=== PATIENT | female | born 1975 | race Hispanic/Latino ===

== ENCOUNTER 2018-06-07 23:00 | Emergency (ER) | payer SELFPAY ==
[~2018-06-07 23:00] MED LIST: ACET1TAB25 PO; DOCU100C33 PO; LEVO500T2 PO; METO5 PO; METR500T PO; PROM25TA7 PO
[2018-06-07] MEDS ORDERED: ONDANSETRON HCL 4 MG/2 ML VIAL ONE (23:38)
[2018-06-07] MEDS ORDERED: MORPHINE SULFATE 4 MG/1ML SYG ONE (23:39)
[2018-06-07 23:50] LABS: BASOPHILS % (AUTO) 0.4 % (0.0-5.0); EOSINOPHILS % (AUTO) 0.5 % (0.0-8.0); HEMATOCRIT 33.6 % (36-48); LYMPHOCYTES % (AUTO) 18.6 % (21.0-51.0); MEAN CORPUSCULAR HGB CONC 32.9 g/dL (32.0-36.0); MEAN CORPUSCULAR VOLUME 82.1 fL (79-99); MONOCYTES % (AUTO) 7.7 % (3.0-13.0); NEUTROPHILS % (AUTO) 72.8 % (40.0-77.0); NUCLEATED RED BLOOD CELLS 0.1 % (0.0-0.19); PLATELET COUNT (AUTO) 572 K/uL (130-400); RED CELL DISTRIBUTION WIDTH 16.3 % (11.0-15.5); WHITE BLOOD COUNT (AUTO) 11.4 K/uL (4.8-10.8)
[2018-06-08 00:05] LABS: ALBUMIN 2.6 g/dL (3.5-5.0); BILIRUBIN,TOTAL 0.3 mg/dL (0.2-1.0); CREATININE 0.6 mg/dL (0.5-1.5); TOTAL PROTEIN, SERUM 6.8 g/dL (6.0-8.3)
[2018-06-08 00:12] LABS: POTASSIUM 2.8 mmol/L (3.5-5.1)
[2018-06-08] MEDS ORDERED: POTASSIUM BICARB/CIT AC 25 MEQ TABLET.EFF ONE ×2 (01:04→02:24)
[2018-06-08] MEDS ORDERED: MORPHINE SULFATE 4 MG/1ML SYG ONE (02:24)
== END 2018-06-08 02:57 | disposition home or self-care (01) ==
LOC: EDH 23:00
DX: R10.84 Generalized abdominal pain (principal); E11.9 Type 2 diabetes mellitus without complications; E78.5 Hyperlipidemia, unspecified
CPT/HCPCS: 36415; 76705; 80053; 82550; 83605; 83690; 84484; 85025; 93005; 96374; 96375; 96376; 99285; J2270 ×2; J2405

== ENCOUNTER 2018-06-23 16:12 | Inpatient (IN) | payer SELFPAY ==
[~2018-06-23] VITALS: Ht 162.6 cm; Wt 68.9 kg
[2018-06-23 16:57] LABS: BASOPHILS % (AUTO) 0.3 % (0.0-5.0); EOSINOPHILS % (AUTO) 0.4 % (0.0-8.0); MEAN CORPUSCULAR HEMOGLOBIN 26.7 pg (27.0-33.0); MEAN CORPUSCULAR HGB CONC 33.5 g/dL (32.0-36.0); MEAN CORPUSCULAR VOLUME 79.7 fL (79-99); MONOCYTES % (AUTO) 4.3 % (3.0-13.0); PLATELET COUNT (AUTO) 640 K/uL (130-400); RED BLOOD CELL COUNT(AUTO) 4.77 MIL/uL (4.00-5.50); RED CELL DISTRIBUTION WIDTH 17.5 % (11.0-15.5); WHITE BLOOD COUNT (AUTO) 10.3 K/uL (4.8-10.8)
[2018-06-23 16:59] LABS: APPEARANCE,URINE SL CLOUDY (CLEAR); BILIRUBIN,URINE SMALL (NEGATIVE); COLOR,URINE YELLOW (YELLOW); GLUCOSE, URINE (UA) NEGATIVE (NEGATIVE); KETONES,URINE 15 mg/dL (NEGATIVE); LEUKOCYTE ESTERASE ,URINE SMALL (NEGATIVE); NITRATE,URINE NEGATIVE (NEGATIVE); OCCULT BLOOD,URINE SMALL (NEGATIVE); PROTEIN,URINE 30 (NEGATIVE); UROBILINOGEN,URINE 0.2 mg/dL (0.2-1.0)
[2018-06-23 17:14] LABS: BACTERIA,URINE Few /HPF (None Seen)
[2018-06-23 17:15] LABS: MUCUS,URINE Few LPF (None Seen); SQUAMOUS EPITHELIAL CELL,UR Few /HPF (0-2)
[2018-06-23] MEDS ORDERED: MORPHINE SULFATE 4 MG/1ML SYG ONE (17:57)
[2018-06-23] MEDS ORDERED: SODIUM CHLORIDE 0.9% 1000ML 2,000 ML IV ONE (17:57)
[2018-06-23] MEDS ORDERED: ONDANSETRON HCL 4 MG/2 ML VIAL ONE (17:57)
[2018-06-23 17:59] LABS: BILIRUBIN,TOTAL 0.3 mg/dL (0.2-1.0); CREATININE 0.5 mg/dL (0.5-1.5); TOTAL PROTEIN, SERUM 7.3 g/dL (6.0-8.3)
[2018-06-23 18:01] LABS: POTASSIUM 2.4 mmol/L (3.5-5.1)
[2018-06-23] MEDS ORDERED: POTASSIUM CHLORIDE 20MEQ/100ML 100 ML IV ONE ×2 (19:09→20:20)
[2018-06-23] MEDS ORDERED: LIDOCAINE HCL-MPF 1% 2ML VIAL ONE (19:09)
[2018-06-23] MEDS ORDERED: METHYLPREDNISOLONE SOD SUCC 125MG/2ML VIAL ONE (19:21)
[2018-06-23] MEDS ORDERED: ZOSYN 3.375GM+NS 50ML 50 ML IV ONE (19:21)
[2018-06-23] MEDS ORDERED: SODIUM CHLORIDE 0.9% 1000ML 1,000 ML IV ONE (20:20)
[2018-06-23] MEDS ORDERED: DIPHENOXYLATE HCL/ATROPINE 2.5/0.025 MG TAB PO PRN (21:30)
[2018-06-23] MEDS ORDERED: POTASSIUM CHLORIDE 20MEQ/100ML 100 ML IV PRN (21:45)
[2018-06-23] MEDS ORDERED: ONDANSETRON HCL 4 MG/2 ML VIAL IVP PRN (21:45)
[2018-06-23] MEDS ORDERED: POTASSIUM CHLORIDE 20 MEQ ERTAB PO PRN (21:45)
[2018-06-23] MEDS ORDERED: POTASSIUM CHLORIDE 10% ELIXIR 20 MEQ/15 ML UDCUP PO PRN (21:45)
[2018-06-23] MEDS ORDERED: LIDOCAINE HCL-MPF 1% 2ML VIAL IJ PRN (21:45)
[2018-06-23] MEDS ORDERED: GLUCAGON 1MG KIT 1 MG ML IM PRN (23:45)
[2018-06-23] MEDS ORDERED: DEXTROSE 50%-WATER 50 ML DISP.SYRIN IV PRN (23:45)
[2018-06-23 23:51] VITALS: BP 101/64
[2018-06-24] VITALS (7 sets, daily range): BP systolic 88–116; BP diastolic 55–69
[2018-06-24] MEDS ORDERED: DICYCLOMINE HCL 10 MG/ML 2ML AMP IM ONE ×2 (00:15)
[2018-06-24] MEDS: LACTATED RINGERS 1000ML 1,000 ML IV SCH ×3 (00:19→14:58)
[2018-06-24 04:37] LABS: BASOPHILS % (AUTO) 0.1 % (0.0-5.0); HEMATOCRIT 31.1 % (36-48); LYMPHOCYTES % (AUTO) 9.1 % (21.0-51.0); MEAN CORPUSCULAR HEMOGLOBIN 25.7 pg (27.0-33.0); MEAN CORPUSCULAR HGB CONC 31.8 g/dL (32.0-36.0); MEAN CORPUSCULAR VOLUME 80.7 fL (79-99); MONOCYTES % (AUTO) 1.6 % (3.0-13.0); NEUTROPHILS % (AUTO) 89.2 % (40.0-77.0); PLATELET COUNT (AUTO) 431 K/uL (130-400); RED BLOOD CELL COUNT(AUTO) 3.86 MIL/uL (4.00-5.50); RED CELL DISTRIBUTION WIDTH 16.8 % (11.0-15.5); WHITE BLOOD COUNT (AUTO) 4.4 K/uL (4.8-10.8)
[2018-06-24 05:10] LABS: ALBUMIN 1.7 g/dL (3.5-5.0); BILIRUBIN,TOTAL 0.4 mg/dL (0.2-1.0); CREATININE 0.5 mg/dL (0.5-1.5); POTASSIUM 3.3 mmol/L (3.5-5.1); TOTAL PROTEIN, SERUM 6.6 g/dL (6.0-8.3)
[2018-06-24] MEDS: INSULIN HUMULIN R 100 UNIT/ML 3ML SQ SCH ×4 (06:20→20:40)
[2018-06-24] MEDS: MORPHINE SULFATE 2 MG/ML 1ML SYG IVP PRN ×2 (08:41→20:05)
[2018-06-24] MEDS: POTASSIUM CHLORIDE 20 MEQ ERTAB PO SCH ×2 (11:25→20:22)
[2018-06-24] MEDS: FAMOTIDINE 20MG TAB 20 MG TAB PO SCH ×2 (11:26→20:05)
[2018-06-24] MEDS: PREDNISONE 20 MG TABLET PO SCH (11:26)
[2018-06-24] MEDS: METHYLPREDNISOLONE SOD SUCC 40MG/ML 1ML IVP SCH ×3 (11:27→23:47)
[2018-06-24] MEDS: INSULIN LISPRO 100 UNIT/ML 3ML SQ SCH ×2 (11:39→16:41)
[2018-06-24] MEDS: ZOSYN 3.375GM+NS 50ML 50 ML IV SCH ×2 (14:58→20:05)
[2018-06-24] MEDS ORDERED: MESA400C2 PO (20:22)
[2018-06-24] MEDS: INSULIN GLARGINE 100 UNITS/ML 10 ML VIAL SQ SCH (20:27)
[2018-06-24] MEDS ORDERED: DICYCLOMINE HCL 20 MG TAB ONE (22:15)
[2018-06-25] VITALS (7 sets, daily range): BP systolic 93–113; BP diastolic 56–78
[2018-06-25] MEDS: LACTATED RINGERS 1000ML 1,000 ML IV SCH ×2 (03:37→16:33)
[2018-06-25 04:54] LABS: HEMATOCRIT 29.3 % (36-48); MEAN CORPUSCULAR HEMOGLOBIN 26.8 pg (27.0-33.0); MEAN CORPUSCULAR HGB CONC 33.3 g/dL (32.0-36.0); MEAN CORPUSCULAR VOLUME 80.5 fL (79-99); PLATELET COUNT (AUTO) 489 K/uL (130-400); RED BLOOD CELL COUNT(AUTO) 3.64 MIL/uL (4.00-5.50); WHITE BLOOD COUNT (AUTO) 8.6 K/uL (4.8-10.8)
[2018-06-25 04:56] LABS: HEMOGLOBIN A1C 11.2 % (4.0-6.0)
[2018-06-25] MEDS: ZOSYN 3.375GM+NS 50ML 50 ML IV SCH ×3 (04:57→20:18)
[2018-06-25 05:26] LABS: ALBUMIN 1.7 g/dL (3.5-5.0); BILIRUBIN,TOTAL 0.2 mg/dL (0.2-1.0); CREATININE 0.5 mg/dL (0.5-1.5); MAGNESIUM 2.1 mg/dL (1.80-2.40); POTASSIUM 3.7 mmol/L (3.5-5.1); TOTAL PROTEIN, SERUM 6.5 g/dL (6.0-8.3)
[2018-06-25 06:24] LABS: ERYTHROCYTE SEDIMENTATION RATE 115 MM/HR (0-20)
[2018-06-25] MEDS: MORPHINE SULFATE 2 MG/ML 1ML SYG IVP PRN ×2 (07:47→20:54)
[2018-06-25] MEDS: PREDNISONE 20 MG TABLET PO SCH (07:48)
[2018-06-25] MEDS: DICYCLOMINE HCL 20 MG TAB PO PRN (07:48)
[2018-06-25] MEDS: METHYLPREDNISOLONE SOD SUCC 40MG/ML 1ML IVP SCH ×2 (07:48→16:37)
[2018-06-25] MEDS: FAMOTIDINE 20MG TAB 20 MG TAB PO SCH ×2 (07:49→20:18)
[2018-06-25] MEDS: POTASSIUM CHLORIDE 20 MEQ ERTAB PO SCH ×2 (07:49→20:19)
[2018-06-25] MEDS: INSULIN LISPRO 100 UNIT/ML 3ML SQ SCH ×3 (07:54→16:45)
[2018-06-25] MEDS: INSULIN HUMULIN R 100 UNIT/ML 3ML SQ SCH ×4 (07:55→21:02)
[2018-06-25] MEDS ORDERED: SODIUM CHLORIDE 0.9% 50 ML IV ONE (20:16)
[2018-06-25] MEDS: INSULIN GLARGINE 100 UNITS/ML 10 ML VIAL SQ SCH (21:00)
[2018-06-26 04:00] VITALS: BP 136/81
[2018-06-26 05:07] LABS: HEMATOCRIT 33.6 % (36-48); MEAN CORPUSCULAR HEMOGLOBIN 26.4 pg (27.0-33.0); MEAN CORPUSCULAR HGB CONC 32.5 g/dL (32.0-36.0); MEAN CORPUSCULAR VOLUME 81.5 fL (79-99); PLATELET COUNT (AUTO) 493 K/uL (130-400); RED BLOOD CELL COUNT(AUTO) 4.13 MIL/uL (4.00-5.50); RED CELL DISTRIBUTION WIDTH 16.8 % (11.0-15.5); WHITE BLOOD COUNT (AUTO) 7.9 K/uL (4.8-10.8)
[2018-06-26 05:19] LABS: ALBUMIN 1.8 g/dL (3.5-5.0); CREATININE 0.6 mg/dL (0.5-1.5); POTASSIUM 3.9 mmol/L (3.5-5.1)
[2018-06-26 06:11] LABS: ERYTHROCYTE SEDIMENTATION RATE 75 MM/HR (0-20)
[2018-06-26] MEDS: ZOSYN 3.375GM+NS 50ML 50 ML IV SCH ×3 (06:53→20:39)
[2018-06-26] MEDS: MORPHINE SULFATE 2 MG/ML 1ML SYG IVP PRN ×2 (07:02→12:15)
[2018-06-26] MEDS: INSULIN LISPRO 100 UNIT/ML 3ML SQ SCH ×2 (07:06→12:24)
[2018-06-26] MEDS: INSULIN HUMULIN R 100 UNIT/ML 3ML SQ SCH ×4 (07:08→22:08)
[2018-06-26 08:00] VITALS: BP 136/63
[2018-06-26] MEDS: PREDNISONE 20 MG TABLET PO SCH (08:45)
[2018-06-26] MEDS: FAMOTIDINE 20MG TAB 20 MG TAB PO SCH ×2 (08:46→20:39)
[2018-06-26] MEDS: POTASSIUM CHLORIDE 20 MEQ ERTAB PO SCH ×2 (08:46→20:39)
[2018-06-26 11:00] VITALS: BP 131/75
[2018-06-26] MEDS ORDERED: MORPHINE SULFATE 4 MG/1ML SYG ONE (12:11)
[2018-06-26] MEDS ORDERED: METFORMIN HCL 500 MG TABLET ONE (15:50)
[2018-06-26 16:00] VITALS: BP 102/64
[2018-06-26] MEDS: GLIPIZIDE 5 MG TABLET PO SCH (16:12)
[2018-06-26] MEDS: METFORMIN HCL 500 MG TABLET PO SCH (16:12)
[2018-06-26] MEDS: ACETAMINOPHEN-CODEINE 300/30MG TAB PO PRN (16:13)
[2018-06-26] MEDS ORDERED: HONEY 1 APPL/ML TUBE TP SCH (19:15)
[2018-06-26 19:44] VITALS: BP 105/66
[2018-06-26] MEDS: INSULIN GLARGINE 100 UNITS/ML 10 ML VIAL SQ SCH (22:08)
[2018-06-26 23:52] VITALS: BP 113/79
[2018-06-27 04:34] LABS: HEMATOCRIT 30.6 % (36-48); MEAN CORPUSCULAR HEMOGLOBIN 26.5 pg (27.0-33.0); MEAN CORPUSCULAR HGB CONC 32.5 g/dL (32.0-36.0); MEAN CORPUSCULAR VOLUME 81.4 fL (79-99); PLATELET COUNT (AUTO) 515 K/uL (130-400); RED BLOOD CELL COUNT(AUTO) 3.76 MIL/uL (4.00-5.50); WHITE BLOOD COUNT (AUTO) 7.1 K/uL (4.8-10.8)
[2018-06-27 04:51] LABS: ALBUMIN 1.8 g/dL (3.5-5.0); BILIRUBIN,TOTAL 0.1 mg/dL (0.2-1.0); CREATININE 0.5 mg/dL (0.5-1.5); CRP QUANTITATIVE 28.6 mg/L (0.00-9.0); POTASSIUM 3.6 mmol/L (3.5-5.1)
[2018-06-27] MEDS ORDERED: SODIUM CHLORIDE 0.9% 50 ML IV ONE ×2 (05:07→13:23)
[2018-06-27] MEDS: ZOSYN 3.375GM+NS 50ML 50 ML IV SCH ×2 (05:09→13:26)
[2018-06-27 05:10] VITALS: BP 107/67
[2018-06-27] MEDS: INSULIN HUMULIN R 100 UNIT/ML 3ML SQ SCH ×3 (06:39→17:08)
[2018-06-27] MEDS: GLIPIZIDE 5 MG TABLET PO SCH ×2 (07:30→17:15)
[2018-06-27] MEDS: METFORMIN HCL 500 MG TABLET PO SCH ×3 (08:00→17:00)
[2018-06-27 08:09] VITALS: BP 118/78
[2018-06-27] MEDS: FAMOTIDINE 20MG TAB 20 MG TAB PO SCH (10:03)
[2018-06-27] MEDS: ACETAMINOPHEN-CODEINE 300/30MG TAB PO PRN (10:04)
[2018-06-27] MEDS: POTASSIUM CHLORIDE 20 MEQ ERTAB PO SCH (10:04)
[2018-06-27] MEDS: DICYCLOMINE HCL 20 MG TAB PO PRN (10:04)
[2018-06-27] MEDS: PREDNISONE 20 MG TABLET PO SCH (10:04)
[2018-06-27 11:41] VITALS: BP 108/60
[2018-06-27 16:00] VITALS: BP 90/56
[2018-06-27] MEDS ORDERED: GLIP5TAB11 PO (17:59)
[2018-06-27] MEDS ORDERED: METF-446 PO (17:59)
[2018-06-27] MEDS ORDERED: INSLAN SQ (17:59)
[2018-06-27] MEDS ORDERED: DICY20 PO (17:59)
== END 2018-06-27 20:35 | disposition home or self-care (01) | DRG 385 ==
LOC: EDH 16:12 → EDHIP 16:13 → 4AH 22:15 → 4CH 06-25 10:38 → 4BH 06-26 00:46
PROVIDERS: ADMIT Hospitalist; ATTEND Hospitalist
DX: K50.10 Crohn's disease of large intestine without complications (principal); E43 Unspecified severe protein-calorie malnutrition; E87.1 Hypo-osmolality and hyponatremia; D62 Acute posthemorrhagic anemia; E86.1 Hypovolemia; E86.0 Dehydration; E87.6 Hypokalemia; E11.65 Type 2 diabetes mellitus with hyperglycemia; E78.5 Hyperlipidemia, unspecified; K76.0 Fatty (change of) liver, not elsewhere classified; Z68.26 Body mass index [BMI] 26.0-26.9, adult; Z91.19 Patient's noncompliance with other medical treatment and regimen; Z91.14 Patient's other noncompliance with medication regimen; Z83.3 Family history of diabetes mellitus; Z82.49 Family history of ischemic heart disease and other diseases of the circulatory system; Z82.5 Family history of asthma and other chronic lower respiratory diseases; Z82.0 Family history of epilepsy and other diseases of the nervous system; Z82.3 Family history of stroke
CPT/HCPCS: 36415; 74176; 80048; 80053; 81001; 81025; 82040; 82948; 82977; 83036; 83605; 83690; 83735; 84132; 85025; 85027; 85651; 86140; 87324; 93005; 99291; J0500; J1815; J2270; J2405; J2543; J2920; J2930; J3480; J3490; J7030; J7120

== ENCOUNTER 2018-08-30 20:17 | Inpatient (IN) | payer SELFPAY ==
[~2018-08-30] VITALS: Ht 162.6 cm; Wt 63.5 kg
[~2018-08-30 20:17] MED LIST changes: +DICY20 PO; +GLIP5TAB11 PO; +INSLAN SQ; +MESA400C2 PO; +METF-446 PO; -METR500T PO
[2018-08-30 21:18] LABS: APPEARANCE,URINE SL CLOUDY (CLEAR); BILIRUBIN,URINE MODERATE (NEGATIVE); COLOR,URINE YELLOW (YELLOW); GLUCOSE, URINE (UA) NEGATIVE (NEGATIVE); KETONES,URINE >=80 mg/dL (NEGATIVE); LEUKOCYTE ESTERASE ,URINE TRACE (NEGATIVE); NITRATE,URINE NEGATIVE (NEGATIVE); OCCULT BLOOD,URINE TRACE-INTACT (NEGATIVE); PROTEIN,URINE TRACE (NEGATIVE); UROBILINOGEN,URINE 0.2 mg/dL (0.2-1.0)
[2018-08-30] MEDS ORDERED: METOCLOPRAMIDE 10 MG/2 ML VIAL ONE (21:19)
[2018-08-30] MEDS ORDERED: ONDANSETRON HCL 4 MG/2 ML VIAL ONE (21:19)
[2018-08-30] MEDS ORDERED: SODIUM CHLORIDE 0.9% 1000ML 1,000 ML IV ONE (21:20)
[2018-08-30] MEDS ORDERED: FAMOTIDINE/PF 20 MG/2 ML VIAL IV ONE (21:20)
[2018-08-30 21:37] LABS: BACTERIA,URINE Few /HPF (None Seen); MUCUS,URINE Few LPF (None Seen); RBC,URINE 0-1 /HPF (0-1)
[2018-08-30 21:38] LABS: CREATININE 0.6 mg/dL (0.5-1.5); POTASSIUM 3.6 mmol/L (3.5-5.1)
[2018-08-30 21:42] LABS: INR 1.05 (0.85-1.15); PARTIAL THROMBOPLASTIN TIME 35.4 SEC (26.3-35.5)
[2018-08-30 21:44] LABS: ALBUMIN 2.4 g/dL (3.5-5.0); BILIRUBIN,TOTAL 0.5 mg/dL (0.2-1.0)
[2018-08-30 21:54] LABS: BASOPHILS % (AUTO) 0.7 % (0.0-5.0); EOSINOPHILS % (AUTO) 0.8 % (0.0-8.0); HEMATOCRIT 33.4 % (36-48); LYMPHOCYTES % (AUTO) 15.1 % (21.0-51.0); MEAN CORPUSCULAR HEMOGLOBIN 27.2 pg (27.0-33.0); MEAN CORPUSCULAR HGB CONC 32.5 g/dL (32.0-36.0); MEAN CORPUSCULAR VOLUME 83.8 fL (79-99); NEUTROPHILS % (AUTO) 74.4 % (40.0-77.0); PLATELET COUNT (AUTO) 387 K/uL (130-400); RED BLOOD CELL COUNT(AUTO) 3.98 MIL/uL (4.00-5.50); WHITE BLOOD COUNT (AUTO) 8.6 K/uL (4.8-10.8)
[2018-08-30] MEDS ORDERED: METHYLPREDNISOLONE SOD SUCC 125MG/2ML VIAL ONE (23:48)
[2018-08-31] MEDS ORDERED: SODIUM CHLORIDE 0.9% 1000ML 1,000 ML IV SCH
[2018-08-31] MEDS: LEVOFLOXACIN 500 MG/D5W 100 ML 100 ML IV SCH
[2018-08-31] MEDS ORDERED: SODIUM CHLORIDE 0.9% 1000ML 1,000 ML IV ONE (00:06)
[2018-08-31] MEDS ORDERED: GLUCAGON 1MG KIT 1 MG ML IM PRN (00:15)
[2018-08-31] MEDS ORDERED: DEXTROSE 50%-WATER 50 ML DISP.SYRIN IV PRN (00:15)
[2018-08-31 00:40] LABS: HEMOGLOBIN A1C 7.5 % (4.0-6.0)
[2018-08-31] MEDS ORDERED: LEVOFLOXACIN 500 MG/D5W 100 ML 100 ML ONE (01:01)
[2018-08-31 02:45] VITALS: BP 96/65
[2018-08-31 03:00] VITALS: BP 96/65
[2018-08-31] MEDS ORDERED: ACETAMINOPHEN 325 MG TAB PO PRN (03:45)
[2018-08-31] MEDS ORDERED: METHYLPREDNISOLONE SOD SUCC 125MG/2ML VIAL ONE (04:00)
[2018-08-31] MEDS ORDERED: METHYLPREDNISOLONE SOD SUCC 125MG/2ML VIAL IV SCH ×2 (04:30→08:00)
[2018-08-31 05:16] LABS: BASOPHILS % (AUTO) 0.3 % (0.0-5.0); HEMATOCRIT 31.5 % (36-48); LYMPHOCYTES % (AUTO) 6.7 % (21.0-51.0); MEAN CORPUSCULAR HEMOGLOBIN 27.9 pg (27.0-33.0); MEAN CORPUSCULAR HGB CONC 32.9 g/dL (32.0-36.0); MEAN CORPUSCULAR VOLUME 84.9 fL (79-99); MONOCYTES % (AUTO) 1.4 % (3.0-13.0); NEUTROPHILS % (AUTO) 91.6 % (40.0-77.0); PLATELET COUNT (AUTO) 373 K/uL (130-400); RED BLOOD CELL COUNT(AUTO) 3.71 MIL/uL (4.00-5.50); RED CELL DISTRIBUTION WIDTH 18.1 % (11.0-15.5); WHITE BLOOD COUNT (AUTO) 5.5 K/uL (4.8-10.8)
[2018-08-31 05:31] LABS: ALBUMIN 1.9 g/dL (3.5-5.0); BILIRUBIN,TOTAL 0.4 mg/dL (0.2-1.0); CREATININE 0.5 mg/dL (0.5-1.5); POTASSIUM 3.5 mmol/L (3.5-5.1); TOTAL PROTEIN, SERUM 6.2 g/dL (6.0-8.3)
[2018-08-31] MEDS: INSULIN HUMULIN R 100 UNIT/ML 3ML SQ SCH ×4 (05:45→20:45)
[2018-08-31] MEDS: ONDANSETRON HCL 4 MG/2 ML VIAL IV PRN (07:53)
[2018-08-31] MEDS: ENOXAPARIN SODIUM 30 MG/0.3 ML SQ SCH (07:54)
[2018-08-31 08:00] VITALS: BP 73/43
[2018-08-31] MEDS ORDERED: PANTOPRAZOLE 40 MG/VIAL IVP SCH (09:00)
[2018-08-31] MEDS: FAMOTIDINE/PF 20 MG/2 ML VIAL IV SCH ×2 (11:27→20:38)
[2018-08-31] MEDS: DEXTROSE 5 % AND 0.9 % NACL 1,000 ML IV SCH ×2 (11:27→20:37)
[2018-08-31 11:49] LABS: % IRON SATURATION 33.6 % (22-44)
[2018-08-31 12:00] VITALS: BP 94/51
[2018-08-31] MEDS: METRONIDAZOLE 500MG/100ML BAG 100 ML IV SCH ×2 (13:06→20:37)
[2018-08-31] MEDS: METHYLPREDNISOLONE SOD SUCC 125MG/2ML VIAL IV SCH (15:42)
[2018-08-31 16:00] VITALS: BP 90/60
[2018-08-31 20:00] VITALS: BP 102/58
[2018-09-01] VITALS: BP_SYST 92; BP_SYST 96; BP_DIAS 56; BP_DIAS 63
[2018-09-01] MEDS: LEVOFLOXACIN 500 MG/D5W 100 ML 100 ML IV SCH (00:09)
[2018-09-01] MEDS: METHYLPREDNISOLONE SOD SUCC 125MG/2ML VIAL IV SCH ×2 (00:09→10:39)
[2018-09-01] MEDS: DEXTROSE 5 % AND 0.9 % NACL 1,000 ML IV SCH ×3 (02:00→10:39)
[2018-09-01] MEDS: METRONIDAZOLE 500MG/100ML BAG 100 ML IV SCH ×3 (03:52→21:14)
[2018-09-01 04:00] VITALS: BP 90/58
[2018-09-01 05:38] LABS: MEAN CORPUSCULAR HEMOGLOBIN 27.1 pg (27.0-33.0); MEAN CORPUSCULAR HGB CONC 32.3 g/dL (32.0-36.0); MEAN CORPUSCULAR VOLUME 83.9 fL (79-99); PLATELET COUNT (AUTO) 329 K/uL (130-400); RED BLOOD CELL COUNT(AUTO) 3.34 MIL/uL (4.00-5.50); RED CELL DISTRIBUTION WIDTH 17.7 % (11.0-15.5); WHITE BLOOD COUNT (AUTO) 6.2 K/uL (4.8-10.8)
[2018-09-01 05:58] LABS: ALBUMIN 1.8 g/dL (3.5-5.0); BILIRUBIN,TOTAL 0.2 mg/dL (0.2-1.0); CREATININE 0.6 mg/dL (0.5-1.5); CRP QUANTITATIVE 24.1 mg/L (0.00-9.0); POTASSIUM 3.5 mmol/L (3.5-5.1); TOTAL PROTEIN, SERUM 5.8 g/dL (6.0-8.3)
[2018-09-01] MEDS: INSULIN HUMULIN R 100 UNIT/ML 3ML SQ SCH ×4 (06:04→21:15)
[2018-09-01 08:00] VITALS: BP 95/67
[2018-09-01] MEDS ORDERED: PANTOPRAZOLE 40 MG/VIAL IVP SCH (09:00)
[2018-09-01] MEDS: ENOXAPARIN SODIUM 30 MG/0.3 ML SQ SCH (10:38)
[2018-09-01] MEDS: PANTOPRAZOLE SODIUM 40 MG TABLET.DR PO SCH (10:39)
[2018-09-01] MEDS: ONDANSETRON HCL 4 MG/2 ML VIAL IV PRN ×2 (10:44→21:14)
[2018-09-01 12:00] VITALS: BP 102/67
[2018-09-01] MEDS ORDERED: D5 NS WITH 20 mEq KCl 1000ML 1,000 ML IV SCH (12:00)
[2018-09-01] MEDS: D5 NS WITH 20 mEq KCl 1000ML 1,000 ML IV SCH (15:17)
[2018-09-01 16:00] VITALS: BP 102/76
[2018-09-01 19:00] VITALS: BP 105/71
[2018-09-02] MEDS: METHYLPREDNISOLONE SOD SUCC 40MG/ML 1ML IVP SCH ×2 (03:04→15:30)
[2018-09-02 04:00] VITALS: BP 94/60
[2018-09-02 05:08] LABS: HEMATOCRIT 28.1 % (36-48); MEAN CORPUSCULAR HEMOGLOBIN 27.6 pg (27.0-33.0); MEAN CORPUSCULAR HGB CONC 32.8 g/dL (32.0-36.0); MEAN CORPUSCULAR VOLUME 84.3 fL (79-99); PLATELET COUNT (AUTO) 342 K/uL (130-400); RED BLOOD CELL COUNT(AUTO) 3.33 MIL/uL (4.00-5.50); RED CELL DISTRIBUTION WIDTH 17.9 % (11.0-15.5); WHITE BLOOD COUNT (AUTO) 6.8 K/uL (4.8-10.8)
[2018-09-02 05:28] LABS: ALBUMIN 1.7 g/dL (3.5-5.0); BILIRUBIN,TOTAL 0.3 mg/dL (0.2-1.0); CREATININE 0.5 mg/dL (0.5-1.5); POTASSIUM 3.3 mmol/L (3.5-5.1); TOTAL PROTEIN, SERUM 5.4 g/dL (6.0-8.3)
[2018-09-02] MEDS: PANTOPRAZOLE SODIUM 40 MG TABLET.DR PO SCH (05:49)
[2018-09-02] MEDS: METRONIDAZOLE 500MG/100ML BAG 100 ML IV SCH ×3 (05:49→20:45)
[2018-09-02] MEDS: INSULIN HUMULIN R 100 UNIT/ML 3ML SQ SCH ×4 (06:38→21:53)
[2018-09-02 07:28] LABS: VITAMIN D, 25-HYDROXY 13.5 ng/mL (30.0-100.0)
[2018-09-02 08:00] VITALS: BP 114/75
[2018-09-02 08:20] LABS: HEPATITIS Bs ANTIGEN SCREEN P Negative (Negative)
[2018-09-02] MEDS ORDERED: D5 NS WITH 20 mEq KCl 1000ML IV SCH ×2 (09:00)
[2018-09-02] MEDS ORDERED: POTASSIUM CHLORIDE 20 MEQ ERTAB PO SCH (09:15)
[2018-09-02] MEDS: ENOXAPARIN SODIUM 30 MG/0.3 ML SQ SCH (10:07)
[2018-09-02 12:00] VITALS: BP 112/74
[2018-09-02] MEDS: ONDANSETRON HCL 4 MG/2 ML VIAL IV PRN (13:08)
[2018-09-02 16:00] VITALS: BP 119/77
[2018-09-02 20:10] VITALS: BP 99/66
[2018-09-02] MEDS: D5 NS WITH 20 mEq KCl 1000ML 1,000 ML IV SCH (20:45)
[2018-09-03 00:53] VITALS: BP 90/57
[2018-09-03 04:00] VITALS: BP 106/56
[2018-09-03] MEDS: METHYLPREDNISOLONE SOD SUCC 40MG/ML 1ML IVP SCH ×2 (04:26→16:40)
[2018-09-03] MEDS: METRONIDAZOLE 500MG/100ML BAG 100 ML IV SCH ×2 (05:53→13:21)
[2018-09-03] MEDS: INSULIN HUMULIN R 100 UNIT/ML 3ML SQ SCH ×3 (06:25→16:30)
[2018-09-03 08:00] VITALS: BP 104/67
[2018-09-03] MEDS ORDERED: ONDA4TAB4 PO (08:25)
[2018-09-03] MEDS ORDERED: CIPR-279 PO (08:25)
[2018-09-03] MEDS ORDERED: PRED20TA3 PO (08:25)
[2018-09-03] MEDS: PANTOPRAZOLE SODIUM 40 MG TABLET.DR PO SCH (09:47)
[2018-09-03] MEDS: ENOXAPARIN SODIUM 30 MG/0.3 ML SQ SCH (09:47)
[2018-09-03 11:00] VITALS: BP 111/66
[2018-09-03] MEDS: ONDANSETRON HCL 4 MG/2 ML VIAL IV PRN (12:43)
[2018-09-03 16:00] VITALS: BP 104/69
[2018-09-03] MEDS ORDERED: METOCLOPRAMIDE 10 MG/2 ML VIAL IVP SCH (16:30)
[2018-09-03] MEDS ORDERED: METOCLOPRAMIDE 10 MG/2 ML VIAL ONE (16:35)
== END 2018-09-03 17:50 | disposition home or self-care (01) | DRG 386 ==
LOC: EDH 20:17 → EDHIP 20:18 → 3BH 08-31 01:51
PROVIDERS: ADMIT Internal Medicine; ATTEND Internal Medicine
DX: K50.90 Crohn's disease, unspecified, without complications (principal); N39.0 Urinary tract infection, site not specified; K52.9 Noninfective gastroenteritis and colitis, unspecified; E86.0 Dehydration; D64.9 Anemia, unspecified; E11.65 Type 2 diabetes mellitus with hyperglycemia; E78.00 Pure hypercholesterolemia, unspecified; E78.5 Hyperlipidemia, unspecified; I10 Essential (primary) hypertension; Z87.11 Personal history of peptic ulcer disease; Z23 Encounter for immunization; Z83.3 Family history of diabetes mellitus; Z82.5 Family history of asthma and other chronic lower respiratory diseases; Z82.49 Family history of ischemic heart disease and other diseases of the circulatory system; Z82.3 Family history of stroke; Z82.0 Family history of epilepsy and other diseases of the nervous system
CPT/HCPCS: 36415; 74177; 80053; 81001; 81025; 82150; 82306; 82542; 82948; 83036; 83540; 83550; 83690; 84484; 85025; 85027; 85610; 85651; 85730; 86038; 86140; 86255; 86480; 86704; 86706; 86708; 87040; 87088; 87340; 87520; 93005; A4218; C9113; G0008; G0378; J1650; J1815; J1956; J2405; J2765; J2920; J2930; J3480; J3490; J7030; J7042; Q2035

== ENCOUNTER 2019-01-11 20:27 | Emergency (ER) | payer SELFPAY ==
[~2019-01-11 20:27] MED LIST changes: -ACET1TAB25 PO; +CIPR-279 PO; -DICY20 PO; -DOCU100C33 PO; -GLIP5TAB11 PO; -INSLAN SQ; -LEVO500T2 PO; -MESA400C2 PO; -METF-446 PO; -METO5 PO; +ONDA4TAB4 PO; +PRED20TA3 PO; -PROM25TA7 PO
[2019-01-11 21:11] LABS: BASOPHILS % (AUTO) 0.7 % (0.0-5.0); EOSINOPHILS % (AUTO) 0.3 % (0.0-8.0); HEMATOCRIT 31.8 % (36-48); LYMPHOCYTES % (AUTO) 24.8 % (21.0-51.0); MEAN CORPUSCULAR HEMOGLOBIN 21.7 pg (27.0-33.0); MEAN CORPUSCULAR HGB CONC 31.5 g/dL (32.0-36.0); MEAN CORPUSCULAR VOLUME 68.8 fL (79-99); NEUTROPHILS % (AUTO) 62.2 % (40.0-77.0); NUCLEATED RED BLOOD CELLS 0.1 % (0.0-0.19); PLATELET COUNT (AUTO) 348 K/uL (130-400); RED BLOOD CELL COUNT(AUTO) 4.62 MIL/uL (4.00-5.50); RED CELL DISTRIBUTION WIDTH 17.7 % (11.0-15.5); WHITE BLOOD COUNT (AUTO) 5.3 K/uL (4.8-10.8)
[2019-01-11 21:32] LABS: ALBUMIN 2.3 g/dL (3.5-5.0); BILIRUBIN,TOTAL 0.3 mg/dL (0.2-1.0); CREATININE 0.9 mg/dL (0.5-1.5); TOTAL PROTEIN, SERUM 8.1 g/dL (6.0-8.3)
[2019-01-11 21:34] LABS: POTASSIUM 2.4 mmol/L (3.5-5.1)
[2019-01-11] MEDS ORDERED: POTASSIUM CHLORIDE 10% ELIXIR 20 MEQ/15 ML UDCUP ONE (21:38)
[2019-01-11 21:50] LABS: CRP QUANTITATIVE 188.2 mg/L (0.00-9.0)
[2019-01-11] MEDS ORDERED: KETOROLAC TROMETHAMINE 30MG/ML ONE (22:12)
[2019-01-11] MEDS ORDERED: METHYLPREDNISOLONE SOD SUCC 125MG/2ML VIAL ONE (22:12)
[2019-01-11] MEDS ORDERED: ONDANSETRON HCL 4 MG/2 ML VIAL ONE (22:12)
[2019-01-11 22:13] LABS: APPEARANCE,URINE CLOUDY (CLEAR); BILIRUBIN,URINE SMALL (NEGATIVE); COLOR,URINE YELLOW (YELLOW); GLUCOSE, URINE (UA) NEGATIVE (NEGATIVE); KETONES,URINE 15 mg/dL (NEGATIVE); LEUKOCYTE ESTERASE ,URINE NEGATIVE (NEGATIVE); NITRATE,URINE NEGATIVE (NEGATIVE); OCCULT BLOOD,URINE LARGE (NEGATIVE); PH,URINE 6.5 (5.0-8.0); PROTEIN,URINE 100 mg/dL (NEGATIVE); UROBILINOGEN,URINE 0.2 mg/dL (0.2-1.0)
[2019-01-11 22:15] LABS: HCG,QUAL RESULT NEGATIVE (NEGATIVE)
[2019-01-11 22:22] LABS: BACTERIA,URINE Few /HPF (None Seen); MUCUS,URINE Moderate LPF (None Seen)
[2019-01-11 22:28] LABS: AMPHET/METH SCREEN,URINE NEGATIVE (NEGATIVE); BARBITURATE SCREEN, URINE NEGATIVE (NEGATIVE); BENZODIAZEPINES SCREEN,URINE NEGATIVE (NEGATIVE); CANNABINOID SCREEN,URINE NEGATIVE (NEGATIVE); COCAINE SCREEN,URINE POSITIVE (NEGATIVE); OPIATE SCREEN,URINE NEGATIVE (NEGATIVE); PHENCYCLIDINE SCREEN,URINE NEGATIVE (NEGATIVE)
[2019-01-12] MEDS ORDERED: TRAMADOL HCL 50 MG TABLET ONE (00:34)
== END 2019-01-12 01:00 | disposition home or self-care (01) ==
LOC: EDH 20:27
DX: K50.90 Crohn's disease, unspecified, without complications (principal); K92.2 Gastrointestinal hemorrhage, unspecified; E11.9 Type 2 diabetes mellitus without complications; D64.9 Anemia, unspecified; E78.5 Hyperlipidemia, unspecified; Z98.51 Tubal ligation status; Z98.890 Other specified postprocedural states
CPT/HCPCS: 36415; 74176; 80053; 80305; 81001; 81025; 82150; 82550; 83690; 84484; 84703; 85025; 85651; 86140; 93005; 96374; 96375; 99285; J1885; J2405; J2930

== ENCOUNTER 2019-07-18 21:20 | Emergency (ER) | payer SELFPAY ==
[2019-07-18] MEDS ORDERED: IPRATROPIUM/ALBUTEROL SULFATE 3 ML SOLUTION IH ONE (21:53)
[2019-07-18 22:03] LABS: APPEARANCE,URINE Clear (CLEAR); BILIRUBIN,URINE Negative (NEGATIVE); COLOR,URINE Yellow (YELLOW); GLUCOSE, URINE (UA) >=1000 mg/dL (NEGATIVE); KETONES,URINE Negative (NEGATIVE); LEUKOCYTE ESTERASE ,URINE Negative (NEGATIVE); NITRATE,URINE Negative (NEGATIVE); OCCULT BLOOD,URINE Small (NEGATIVE); PROTEIN,URINE Negative (NEGATIVE); UROBILINOGEN,URINE 0.2 mg/dL (0.2-1.0)
[2019-07-18 22:08] LABS: HCG,QUAL RESULT NEGATIVE (NEGATIVE)
[2019-07-18 22:16] LABS: RAPID GROUP A STREP POSITIVE (NEGATIVE)
[2019-07-18] MEDS ORDERED: SODIUM CHLORIDE 0.9% 1000ML 1,000 ML IV ONE (22:19)
[2019-07-18 22:26] LABS: HEMATOCRIT 34.8 % (36-48); LYMPHOCYTES % (AUTO) 24.2 % (21.0-51.0); MEAN CORPUSCULAR HEMOGLOBIN 28.8 pg (27.0-33.0); MEAN CORPUSCULAR HGB CONC 33.7 g/dL (32.0-36.0); MEAN CORPUSCULAR VOLUME 85.5 fL (79-99); MONOCYTES % (AUTO) 11.8 % (3.0-13.0); PLATELET COUNT (AUTO) 231 K/uL (130-400); RED BLOOD CELL COUNT(AUTO) 4.07 MIL/uL (4.00-5.50); RED CELL DISTRIBUTION WIDTH 15.6 % (11.0-15.5)
[2019-07-18 22:27] LABS: CREATININE 0.7 mg/dL (0.5-1.5); POTASSIUM 3.5 mmol/L (3.5-5.1)
[2019-07-18 22:32] LABS: ALBUMIN 3.3 g/dL (3.5-5.0); BILIRUBIN,TOTAL 0.2 mg/dL (0.2-1.0); TOTAL PROTEIN, SERUM 7.8 g/dL (6.0-8.3)
[2019-07-18 23:00] LABS: ABG OXYGEN SATURATION 33.2 % (95.0-99.0); BASE EXCESS,VENOUS BLOOD GAS -0.3 (-2.0-3.0); HCO3,VENOUS BLOOD GAS 26.9 (21.0-28.0); PCO2,VENOUS BLOOD GAS 54 (32-45); PH,VENOUS BLOOD GAS 7.316 (7.350-7.450)
[2019-07-18] MEDS ORDERED: INSULIN HUMULIN R 100 UNIT/ML 3ML ONE (23:21)
== END 2019-07-19 00:37 | disposition home or self-care (01) ==
LOC: EDH 21:20
DX: J02.0 Streptococcal pharyngitis (principal); E11.65 Type 2 diabetes mellitus with hyperglycemia; E78.5 Hyperlipidemia, unspecified
CPT/HCPCS: 36415; 36600; 71045; 80053; 81003; 81025; 82010; 82803; 82948 ×2; 83690; 85025; 87040 ×2; 87804 ×2; 87880; 94640; 96361; 96374; 99285; J1815; J7030

== ENCOUNTER 2024-10-29 22:32 | Emergency (ER) | payer BC ==
[~2024-10-29] VITALS: Ht 162.6 cm; Wt 105.2 kg
--- NOTE | 2024-10-29 22:37 | NUR ---
UA CUP PROVIDED
--- NOTE | 2024-10-29 22:52 | ERN ---
ED Note History of Present Illness Stated Complaint: ABD PAIN. NAUSEA Chief Complaint: Abdominal Pain Time Seen by MD: 22:34 Time Seen by Midlevel: 22:40 Dictation: Ms. Bush is a 49 year old female with history of obesity, hypertension, hyperlipidemia, type II DM, RBKA, and Crohn's disease wanted to the emergency department this evening for evaluation of abdominal pain. She states I think I have a Crohn's flare. She reports severe upper abdominal pain accompanied by nausea without emesis. She states she has a history of Crohn's disease and is receiving Remicade infusions every eight weeks. She denies having fever, chil ls, shortness of breath, cough, chest pain, palpitations, edema, vomiting, hematemesis, melena, hematochezia, constipation, diarrhea, headache, or dizziness. She does mention that she has had some low back pain and was told there was bacteria in her urine . PCP: Abimbola Pena Mccall Allergies: Coded Allergies: No Known Drug Allergies (Verified Allergy, Severe, 05/30/15) Home Meds Active Scripts Polyethylene Glycol 3350 (Miralax) 17 Gram Powd.pack, 1 PACKET PO DAILY for constipation for 7 Days, #14 PACKET 0 Refills dissolve in water Prov:PARI MCKEON [employer] 10/30/24 Ondansetron (Ondansetron Odt) 4 Mg Tab.rapdis, 4 MG PO Q6HPRN PRN for nausea, #15 TAB 0 Refills Prov:PARI MCKEON [employer] 10/30/24 Cephalexin (Cephalexin) 500 Mg Tablet, 500 MG PO BID for 10 Days, #20 TAB Prov:PARI MCKEON [employer] 10/30/24 Ondansetron HCl (Zofran) 4 Mg Tablet, 4 MG PO TIDP PRN for NAUSEA, #20 TAB 0 Refills Prov:MANDY GIRARD MD 09/03/18 Prednisone (Prednisone) 20 Mg Tablet, 20 MG PO DAILYBKFST for 5 Days, TAB 0 Refills Prov:MANDY GIRARD MD 09/03/18 Ciprofloxacin HCl (Cipro) 250 Mg Tablet, 250 MG PO BID for 3 Days, TAB 0 Refills Prov:MANDY GIRARD MD 09/03/18 Past Medical History Past Medical History: Diabetes-Type II, High Cholesterol, Other Additional Past Medical Hx: CROHN'S Surgical History: Other Surgical History Other: RT LEG AMPUTATION PSYCH History: no pertinent psych hx Social History: Negative, Lives with family RN Note Reviewed/Agreed w/PFSH: Yes Review of System Dictation REVIEW OF SYSTEMS: CONSTITUTIONAL: Patient denies fevers, chills, sweats and weight changes. Reports fatigue EYES: Patient denies any visual symptoms. EARS, NOSE, AND THROAT: No difficulties with hearing. No symptoms of rhinitis or sore throat. CARDIOVASCULAR: Patient denies chest pains, palpitations, orthopnea and paroxysmal nocturnal dyspnea. RESPIRATORY: No dyspnea on exertion, no wheezing or cough. GI: No vomiting, hematemesis, diarrhea, constipation, abdominal pain, hematochezia or melena. Reports upper abdominal pain and nausea. Reports pain /. Reports history of Crohn's disease. : No urinary hesitancy or dribbling. No nocturia or urinary frequency. No abnormal urethral discharge. Reports low back pain. States she was recently told she had bacteria in her urine. MUSCULOSKELETAL: No myalgias or arthralgias. NEUROLOGIC: No chronic headaches, no seizures. Patient denies numbness, tingling or weakness. PSYCHIATRIC: Patient denies problems with mood disturbance. No problems with anxiety. ENDOCRINE: No excessive urination or excessive thirst. DERMATOLOGIC: Patient denies any rashes or skin changes. Initial Vital Sign VS Vital Signs Date Time Temp Pulse Resp B/P (MAP) Pulse Ox O2 Delivery O2 Flow Rate FiO2 10/29/24 22:33 97.9 107 20 173/95 98 Room Air Physical Exam Dictation Vital signs: Reviewed. Afebrile. Constitutional: Moderate distress; uncomfortable/crying. Head/Face: Normocephalic, atraumatic. Eyes: Periorbital areas with no swelling, redness, or edema. Lids and lashes are normal. Conjunctival injection is absent. Sclera anicteric. Pupils equal, round, reactive to light. ENT: Pinnas intact and no signs of trauma or erythema. Ear canals clear and no discharge. TMs no erythema. No nasal discharge or bleeding noted. Oropharynx with no exudate, redness, swelling, masses, exudates, or evidence of obstruction. Uvula midline. Mucous membranes dry. Neck: Trachea midline, no masses palpated, and no cervical lymphadenopathy. No swelling. Supple, full range of motion. Chest/Axilla: No tenderness, no crepitus, no paradoxical movement, no retractions. Cardiovascular: Regular rate, regular rhythm, no murmur, no gallops. Symmetric pulses. No peripheral edema. Tachycardic; HR 107. BP elevated 173/95 Respiratory: Respirations even and unlabored. Lung sounds clear; no wheezes, rales or rhonchi. Gastrointestinal: Obese. No distention is appreciated. Bowel sounds are normal. No mass or organomegaly . There is tenderness upon palpation RUQ/LUQ and over the epigastrium. No rebound. No rigidity. No voluntary or involuntary guarding. No Simpson's sign. Abdominal pain 9/10. Neurological: Normal speech, gross motor function intact, gross sensory function intact. No focal weakness/Paresthesia. Musculoskeletal/Extremities: All extremities have full range of motion, no pain or tenderness on palpation. Symmetric pulses. Integumentary: Intact. Skin is normal color, warm and dry. Cap refill less than 3 seconds. Results (Laboratory/Radiology) Laboratory/Radiology Laboratory Tests Test 10/29/24 22:39 10/30/24 00:05 Urine Color YELLOW (YELLOW) Urine Appearance CLOUDY (CLEAR) H Urine pH 6.0 (5.0-8.0) Urine Specific [place] 1.027 (1.001-1.031) Urine Protein 200 mg/dL (NEGATIVE) H Urine Glucose (UA) 200 mg/dL (NEGATIVE) H Urine Ketones 20 mg/dL (NEGATIVE) H Urine Occult Blood MODERATE (NEGATIVE) H Urine Nitrate 2+ (NEGATIVE) H Urine Bilirubin NEGATIVE mg/dL (NEGATIVE) Urine Urobilinogen 0.2 mg/dL (0.2-1.0) Urine Leukocyte Esterase 500 Terrie/uL (NEGATIVE) H Urine RBC 51-100 /HPF (0-1) H Urine WBC TNTC /HPF (0-1) H Urine Squamous Epithelial Cells MANY /HPF (0-2) Urine Bacteria MANY /HPF (None Seen) Urine HCG, Qualitative NEGATIVE (NEGATIVE) White Blood Count 9.6 K/uL (4.8-10.8) Red Blood Count 4.21 MIL/uL (4.00-5.50) Hemoglobin 11.3 g/dL (12.0-16.0) L Hematocrit 34.1 % (36-48) L Mean Corpuscular Volume 81.0 fL (79-99) Mean Corpuscular Hemoglobin 26.8 pg (27.0-33.0) L Mean Corpuscular Hemoglobin Concent 33.1 g/dL (32.0-36.0) Red Cell Distribution Width 13.3 % (11.0-15.5) Platelet Count 325 K/uL (130-400) Mean Platelet Volume 11.3 fL (7.5-10.5) H Immature Granulocyte % (Auto) 0.2 % (0-1) Neutrophils (%) (Auto) 73.7 % (40.0-77.0) Lymphocytes (%) (Auto) 17.2 % (21.0-51.0) L Monocytes (%) (Auto) 7.2 % (3.0-13.0) Eosinophils (%) (Auto) 1.3 % (0.0-8.0) Basophils (%) (Auto) 0.4 % (0.0-5.0) Neutrophils # (Auto) 7.1 K/uL (1.8-7.7) Lymphocytes # (Auto) 1.6 K/uL (1.0-4.8) Monocytes # (Auto) 0.7 K/uL (0.1-1.0) Eosinophils # (Auto) 0.12 K/uL (0.00-0.70) Basophils # (Auto) 0.04 K/uL (0.00-0.20) Absolute Immature Granulocyte (auto 0.02 K/uL (0-1) Nucleated Red Blood Cells 0.0 % (0.0-0.19) Sodium Level 133 mmol/L (136-145) L Potassium Level 3.8 mmol/L (3.5-5.1) Chloride Level 96 mmol/L (101-111) L Carbon Dioxide Level 27 mmol/L (21-32) Blood Urea Nitrogen 10 mg/dL (7-18) Creatinine 0.6 mg/dL (0.5-1.0) Glomerular Filtration Rate Calc 111 mL/min (>90) Random Glucose 241 mg/dL (70-105) H Total Calcium 9.6 mg/dL (8.5-10.1) Total Bilirubin 0.3 mg/dL (0.2-1.0) Aspartate Amino Transf (AST/SGOT) 17 U/L (10-37) Alanine Aminotransferase (ALT/SGPT) 15 U/L (12-78) Alkaline Phosphatase 106 U/L (50-136) C-Reactive Protein, Quantitative 34.70 mg/L (0.5-3.0) H Total Protein 8.1 g/dL (6.0-8.3) Albumin 3.3 g/dL (3.5-5.0) L Labs Reviewed?: Yes ED Course ED Course Orders Procedure Category Date Status Time Urinalysis LAB 10/29/24 Complete W/Microscopic 22:41 ,Urine Test LAB 10/29/24 Complete 22:41 Cbc With Differential LAB 10/29/24 In Process 22:41 Comprehensive LAB 10/29/24 Complete Metabolic Panel 22:41 Erythrocyte LAB 10/29/24 In Process Sedimentation Rate 22:41 Crp Quantitative LAB 10/29/24 Complete 22:41 Saline Lock Iv CPOE 10/29/24 Transmitted 22:41 Ondansetron 4mg Inj PHA 10/29/24 Complete (Zofran 4mg Inj) 23:00 Hydromorphone 0.5mg PHA 10/29/24 Complete Syg (Dilaudid 0.5mg 23:00 Ct Abdomen/Pelvis W/O CT 10/29/24 Resulted Contrast 22:41 Methylprednisolone PHA 10/29/24 Complete Succ 40mg (Solu-Medro 23:00 0.9% Nacl 500ml PHA 10/29/24 Complete Iv.Soln (Ns 500ml 23:00 Culture Urine HARSHAL 10/29/24 In Process 22:56 Ceftriaxone 1g Vial PHA 10/30/24 Complete (Rocephine 1g Inj) 00:00 Current Medications Medications (Trade) Dose Ordered Sig/Graciela Route PRN Reason Start Time Stop Time Status Last Admin Dose Admin Ceftriaxone Sodium (ROCEphine 1G INJ) 1 gm ONCE ONCE IVPB 10/30/24 00:00 10/30/24 00:01 DC 10/30/24 00:11 Hydromorphone HCl (DiLAUDid 0.5MG INJ) 0.5 mg ONCE ONCE IVP 10/29/24 23:00 10/29/24 23:01 DC 10/30/24 00:11 Methylprednisolone Sodium Succinate (Solu-medROL 40MG) 60 mg ONCE ONCE IVP 10/29/24 23:00 10/29/24 23:01 DC 10/30/24 00:11 Ondansetron HCl (zoFRAN 4MG INJ) 4 mg ONCE ONCE IVP 10/29/24 23:00 10/29/24 23:01 DC 10/30/24 00:11 Sodium Chloride 500 ml @ 0 mls/hr ONCE ONCE IV 10/29/24 23:00 10/29/24 23:01 DC 10/30/24 00:12 Vital Signs Date Time Temp Pulse Resp B/P (MAP) Pulse Ox O2 Delivery O2 Flow Rate FiO2 10/29/24 22:33 97.9 107 20 173/95 98 Room Air Uneventful ED course. Heart rate decreased and now normotensive; remains afebrile with room air SpO2 97-98%. CT scan of the abdomen and pelvis unremarkable; no abscess/perforation or obstruction. Noted constipation. Laboratory findings as noted below. UA cloudy;+ protein, glucose, ketones, blood, 2+ nitrate, leukocyte esterase, and UWBC TNTC; UCX pending. No elevation of WBCs. H&H 11.3/24.1, Na/Cl 133/96, glucose 241, CRP 34.7, and albumin 3.3. While in the emergency department she received doses Zofran, Dilaudid, Solu-Medrol, Rocephin, and NS 500 mL IV as bolus.. Findings were discussed with patient and all questions were answered. Medical Decision Making MDM MDM: Differential diagnosis: Diverticulitis, Crohn's flare, bowel perforation or abscess, UTI Rationale: Tests considered and ordered secondary to shared decision making include: Lab, UA, CT scan Previous outside records reviewed: Old ER visits. Risk of complication and/or morbidity or mortality of patient management: None Medications-Per medication reconciliation Need for hospitalization: Patient does not meet criteria for hospitalization. Need for emergency major/minor surgery: No There are no social concerns with this patient. Prescription drug management: Levsin, Zofran, Keflex, and MiraLax Prescriptions will include symptomatic care Patient's prior external medical records from other ER visits were reviewed by me as indicated. Prior testing and results from previous visits were reviewed. Prior tests were taken into account with medical decision making and resource utilization, independent historian/historians were used to obtain complete m edical history. I independently interpreted the test that were performed, results were reviewed by me and considered findings on radiology if ordered. Medical management and examination interpretation discussions were had by me with other qualified healthcare professionals as indicated for the patient's care. DX & DISP Disposition: Discharge Departure Impression: Primary Impression: UTI (urinary tract infection) Additional Impressions: Constipation, Hx of Crohn's disease Condition: Stable Scripts Hyoscyamine Sulfate (Levsin-Sl) 0.125 Mg Tab.subl 0.125 MG SL q 8 hours PRN for abdominal pain/cramping, #10 TAB.SL 0 Refills Prov: PARI MCKEON NP 10/30/24 Polyethylene Glycol 3350 (Miralax) 17 Gram Powd.pack 1 PACKET PO DAILY for constipation for 7 Days, #14 PACKET 0 Refills dissolve in water Prov: PARI MCKEON NP 10/30/24 Ondansetron (Ondansetron Odt) 4 Mg Tab.rapdis 4 MG PO Q6HPRN PRN for nausea, #15 TAB 0 Refills Prov: PARI MCKEON NP 10/30/24 Cephalexin (Cephalexin) 500 Mg Tablet 500 MG PO BID for 10 Days, #20 TAB Prov: PARI MCKEON NP 10/30/24 Additional Instructions: . Drink plenty of fluids. Rest. Take [id number] Tylenol as needed for discomfort. Cephalexin 500 mg twice daily for 10 days for urinary tract infection. May take ondansetron ODT 4 mg every 6 hours as needed for nausea. MiraLax daily for constipation. Follow up with your PCP in the next 2-3 days. Continue with your Crohn's treatment with Remicade infusions. Return to the emergency department for any worsening of symptoms or concerns. Referrals: RAMON QUINTERO (PCP) Time of Disposition: 00:21 PARI MCKEON NP Oct 29, 2024 22:52
[2024-10-29 22:53] LABS: APPEARANCE,URINE CLOUDY (CLEAR); BILIRUBIN,URINE NEGATIVE (NEGATIVE); COLOR,URINE YELLOW (YELLOW); GLUCOSE, URINE (UA) 200 mg/dL (NEGATIVE); KETONES,URINE 20 mg/dL (NEGATIVE); LEUKOCYTE ESTERASE ,URINE 500 Leu/uL (NEGATIVE); NITRATE,URINE 2+ (NEGATIVE); OCCULT BLOOD,URINE MODERATE (NEGATIVE); PROTEIN,URINE 200 mg/dL (NEGATIVE); UROBILINOGEN,URINE 0.2 mg/dL (0.2-1.0)
[2024-10-29 22:55] LABS: HCG,QUALITATIVE URINE NEGATIVE (NEGATIVE)
[2024-10-29 22:57] LABS: BACTERIA,URINE MANY /HPF (None Seen); MUCUS,URINE MANY LPF (None Seen); RBC,URINE 51-100 /HPF (0-1); SQUAMOUS EPITHELIAL CELL,UR MANY /HPF (0-2); WBC,URINE TNTC /HPF (0-1)
--- NOTE | 2024-10-29 23:04 | NUR ---
CALLED FOR BEDDING. NO ANSWER
--- NOTE | 2024-10-29 23:55 | HMCIMG ---
CT ABDOMEN/PELVIS W/O CONTRAST HISTORY: Abdominal pain COMPARISON: 01/11/2019 TECHNIQUE: Multiple sequential axial images of the abdomen and pelvis were obtained from the dome of the diaphragm through symphysis pubis. Patient was not given contrast through intravenous route. Oral contrast was not given. FINDINGS: No pleural effusion is seen bilaterally. There is no evidence of parenchymal disease or pulmonary nodule of the visualized lower lungs. Degenerative changes of the thoracolumbar spine are present. The heart is not enlarged. Liver is enlarged and fatty changes measuring 21 cm. Tiny gallstone may be present in the gallbladder. The liver, spleen, adrenal glands and pancreas are unremarkable. There is no evidence of hydronephrosis bilaterally. No evidence of renal stone is seen. Fecal material is seen in the colon. There are normal size retroperitoneal and mesenteric lymph nodes. No ascites is seen. Atherosclerotic changes are present. Appendix is not well seen limiting evaluation. Pelvic sidewalls are symmetric bilaterally. Bladder is poorly distended. IMPRESSION: 1. Fecal material in the colon. No ascites. CT was performed with one or more following dose reduction techniques: automated exposure control, adjustment of the mA and kv according to patient's size, or use of a iterative reconstruction technique.
[2024-10-30] MEDS: Solu-medROL 40MG VIAL IVP ONE (00:11)
[2024-10-30] MEDS: cefTRIAXone 1G VIAL IVPB ONE (00:11)
[2024-10-30] MEDS: ondanSETRON 4MG INJ IVP ONE (00:11)
[2024-10-30] MEDS: hydroMORPHone 0.5 MG SYG (0.5MG/0.5ML) IVP ONE (00:11)
[2024-10-30] MEDS: 0.9% NACL 500ML IV.SOLN 500 ML IV ONE (00:12)
[2024-10-30] MEDS ORDERED: CEPH500T PO (00:20)
[2024-10-30] MEDS ORDERED: POLY17PO4 PO (00:20)
[2024-10-30] MEDS ORDERED: ONDA-243 PO (00:20)
[2024-10-30 00:23] LABS: CREATININE 0.6 mg/dL (0.5-1.0); POTASSIUM 3.8 mmol/L (3.5-5.1)
[2024-10-30 00:27] LABS: ALBUMIN 3.3 g/dL (3.5-5.0); BILIRUBIN,TOTAL 0.3 mg/dL (0.2-1.0); TOTAL PROTEIN, SERUM 8.1 g/dL (6.0-8.3)
[2024-10-30 00:50] LABS: BASOPHILS # (AUTO) 0.04 K/uL (0.00-0.20); BASOPHILS % (AUTO) 0.4 % (0.0-5.0); EOSINOPHILS # (AUTO) 0.12 K/uL (0.00-0.70); EOSINOPHILS % (AUTO) 1.3 % (0.0-8.0); HEMATOCRIT 34.1 % (36-48); IMMATURE GRANULOCYTE ABSOLUTE 0.02 K/uL (0-1); LYMPHOCYTES # (AUTO) 1.6 K/uL (1.0-4.8); LYMPHOCYTES % (AUTO) 17.2 % (21.0-51.0); MEAN CORPUSCULAR HEMOGLOBIN 26.8 pg (27.0-33.0); MEAN CORPUSCULAR HGB CONC 33.1 g/dL (32.0-36.0); MONOCYTES # (AUTO) 0.7 K/uL (0.1-1.0); MONOCYTES % (AUTO) 7.2 % (3.0-13.0); NEUTROPHILS # (AUTO) 7.1 K/uL (1.8-7.7); NEUTROPHILS % (AUTO) 73.7 % (40.0-77.0); PLATELET COUNT (AUTO) 325 K/uL (130-400); RED BLOOD CELL COUNT(AUTO) 4.21 MIL/uL (4.00-5.50); RED CELL DISTRIBUTION WIDTH 13.3 % (11.0-15.5); WHITE BLOOD COUNT (AUTO) 9.6 K/uL (4.8-10.8)
[2024-10-30] MEDS ORDERED: HYOS0.124 SL (01:05)
[2024-10-30 01:19] VITALS: BP 128/55; PULSE 77; RESP 18; TEMP 98.8; O2SAT 99
[2024-10-30 02:03] LABS: ERYTHROCYTE SEDIMENTATION RATE 80 MM/HR (0-20)
== END 2024-10-30 01:23 | disposition home or self-care (01) ==
LOC: EDH 22:32
DX: K59.00 Constipation, unspecified (principal); N39.0 Urinary tract infection, site not specified; K50.90 Crohn's disease, unspecified, without complications; E11.9 Type 2 diabetes mellitus without complications; E78.00 Pure hypercholesterolemia, unspecified; Z79.899 Other long term (current) drug therapy; Z98.890 Other specified postprocedural states
CPT/HCPCS: 99284; 74176; 80053; 85025; 85651; 87086 ×2; 87186; 86140; 81001; 81025; 36415; 96374; 96375; J2919; J1171; J7040; J0696; J2405

== ENCOUNTER 2024-11-05 20:29 | Emergency (ER) | payer BC ==
[~2024-11-05] VITALS: Ht 162.6 cm; Wt 104.8 kg
[~2024-11-05 20:29] MED LIST changes: +CEPH500T PO; +HYOS0.124 SL; +ONDA-243 PO; +POLY17PO4 PO
--- NOTE | 2024-11-05 20:48 | ERN ---
ED Note History of Present Illness Stated Complaint: C/O ABD PAIN Chief Complaint: Abdominal Pain Time Seen by MD: 20:31 Dictation: PATIENT IS A 49-YEAR-OLD FEMALE COMPLAINING OF SUPRAPUBIC AND LEFT LOWER QUADRANT PAIN TENDERNESS SHE HAS HAD FOR SEVERAL DAYS. NO FEVER NO CHILLS NO NAUSEA VOMITING. SHE IS ON ANTIBIOTICS FROM HER LAST ER VISIT ON THE October FOR A UTI. SHE STATES I COULD NOT GET INTO MY DOCTOR AT [facility] UNTIL NOVEMBER. SHE STATES HE HAS A HISTORY OF CROHN'S DISEASE Allergies: Coded Allergies: No Known Drug Allergies (Verified Allergy, Severe, 05/30/15) Home Meds Active Scripts Hyoscyamine Sulfate (Levsin-Sl) 0.125 Mg Tab.subl, 0.125 MG SL q 8 hours PRN for abdominal pain/cramping, #10 TAB.SL 0 Refills Prov:PARI MCKEON BAG MACHINE ADJUSTER 10/30/24 Polyethylene Glycol 3350 (Miralax) 17 Gram Powd.pack, 1 PACKET PO DAILY for constipation for 7 Days, #14 PACKET 0 Refills dissolve in water Prov:PARI MCKEON BAG MACHINE ADJUSTER 10/30/24 Ondansetron (Ondansetron Odt) 4 Mg Tab.rapdis, 4 MG PO Q6HPRN PRN for nausea, #15 TAB 0 Refills Prov:PARI MCKEON BAG MACHINE ADJUSTER 10/30/24 Cephalexin (Cephalexin) 500 Mg Tablet, 500 MG PO BID for 10 Days, #20 TAB Prov:PARI MCKEON BAG MACHINE ADJUSTER 10/30/24 Ondansetron HCl (Zofran) 4 Mg Tablet, 4 MG PO TIDP PRN for NAUSEA, #20 TAB 0 Refills Prov:MANDY GIRARD MD 09/03/18 Prednisone (Prednisone) 20 Mg Tablet, 20 MG PO DAILYBKFST for 5 Days, TAB 0 Refills Prov:MANDY GIRARD MD 09/03/18 Ciprofloxacin HCl (Cipro) 250 Mg Tablet, 250 MG PO BID for 3 Days, TAB 0 Refills Prov:MANDY GIRARD MD 09/03/18 Past Medical History Past Medical History: Diabetes-Type II, High Cholesterol, Other Additional Past Medical Hx: CROHN'S DISEASE Surgical History: Other Surgical History Other: RT BKA Social History: Negative, Lives with family History: Not Applicable RN Note Reviewed/Agreed w/PFSH: Yes Review of System Dictation CONSTITUTIONAL: NEGATIVE EXCEPT FOR HPI HEAD/FACE: NEGATIVE EXCEPT FOR HPI EENT: NEGATIVE EXCEPT FOR HPI RESPIRATORY: NEGATIVE EXCEPT FOR HPI GASTROINTESTINAL/ABDOMINAL: NEGATIVE EXCEPT FOR HPI SUPRAPUBIC AND LEFT LOWER QUADRANT PAIN TENDERNESS GENITOURINARY: NEGATIVE EXCEPT FOR HPI MUSCULOSKELETAL: NEGATIVE EXCEPT FOR HPI INTEGUMENTARY: NEGATIVE EXCEPT FOR HPI NEUROLOGICAL/PSYCH: NEGATIVE EXCEPT FOR HPI HEMATOLOGIC/LYMPHATIC: NEGATIVE EXCEPT FOR HPI ALL SYSTEMS NEGATIVE, EXCEPT NOTED ABOVE. 13 POINT REVIEW OF SYSTEMS ASSESSED AND ALL NEGATIVE EXCEPT FOR ABOVE. Initial Vital Sign VS Vital Signs Date Time Temp Pulse Resp B/P (MAP) Pulse Ox O2 Delivery O2 Flow Rate FiO2 11/05/24 20:31 98.4 100 20 194/90 100 Room Air 11/05/24 21:03 0 21 Physical Exam Dictation VITAL SIGNS REVIEWED GENERAL APPEARANCE: ALERT, ORIENTED X 3, MILD ACUTE DISTRESS, WELL DEVELOPED, NOURISHED. HEAD AND FACE: NON-TRAUMATIC. EYES: PERRL, PINK CONJUNCTIVAS, EYELID NO TRAUMA, ANTERIOR CHAMBER WITH ARCUS SENILIS. EARS: PINNAS INTACT AND NO SIGNS OF TRAUMA OR ERYTHEMA EAR CANALS CLEAR AND NO DISCHARGE TM NO ERYTHEMA NOSE: NO DISCHARGE, NO BLEEDING. OROPHARYNX: MOUTH NORMAL, TONGUE PINK, PHARYNX CLEAR,NO ERYTHEMA, TONSILS NO EXUDATES, NO ABSCESSES NOTED, MUCOUS MEMBRANE MOIST NECK: SUPPLE, NON-TENDER, NO THYROMEGALY, NO MASSES, NO JVD, NO BRUITS BREAST:DEFERRED CHEST:NO TENDERNESS, NO CREPITUS, NO PARADOXICAL MOVEMENT, NO RETRACTIONS LUNGS:CLEAR, WELL-VENTILATED, SYMMETRIC, NO RALES, NO WHEEZING, NO RHONCHI, NO STRIDOR, GOOD BREATH SOUNDS BILATERALLY HEART: REGULAR RATE, REGULAR RHYTHM, NO MURMUR, NO GALLOPS VASCULAR: NO PERIPHERAL EDEMA, ABDOMEN: SOFT, POSITIVE BOWEL SOUNDS, NONDISTENDED, NO GUARDING, MODERATE SUPRAPUBIC AND LEFT LOWER QUADRANT TENDERNESS WITH PALPATION. RECTAL: DEFERRED GENITAL: DEFERRED NEUROLOGICAL: NORMAL SPEECH, MOTOR FUNCTION INTACT, SENSORY FUNCTION INTACT MUSCULOSKELETAL: NECK NONTENDER, FULL RANGE OF MOTION, BACK NONTENDER, FULL RANGE OF MOTION, EXTREMITIES: NONTENDER, FULL RANGE OF MOTION SKIN: COLOR PINK, DRY, NO TURGOR, NO RASH, NO LACERATIONS, NO ABRASIONS, NO CONTUSIONS. LYMPHATIC: DEFERRED Results (Laboratory/Radiology) Laboratory/Radiology Laboratory Tests Test 11/05/24 21:07 White Blood Count 7.8 K/uL (4.8-10.8) Red Blood Count 3.99 MIL/uL (4.00-5.50) L Hemoglobin 10.7 g/dL (12.0-16.0) L Hematocrit 33.2 % (36-48) L Mean Corpuscular Volume 83.2 fL (79-99) Mean Corpuscular Hemoglobin 26.8 pg (27.0-33.0) L Mean Corpuscular Hemoglobin Concent 32.2 g/dL (32.0-36.0) Red Cell Distribution Width 13.4 % (11.0-15.5) Platelet Count 327 K/uL (130-400) Mean Platelet Volume 10.9 fL (7.5-10.5) H Immature Granulocyte % (Auto) 0.3 % (0-1) Neutrophils (%) (Auto) 67.1 % (40.0-77.0) Lymphocytes (%) (Auto) 23.4 % (21.0-51.0) Monocytes (%) (Auto) 7.2 % (3.0-13.0) Eosinophils (%) (Auto) 1.4 % (0.0-8.0) Basophils (%) (Auto) 0.6 % (0.0-5.0) Neutrophils # (Auto) 5.3 K/uL (1.8-7.7) Lymphocytes # (Auto) 1.8 K/uL (1.0-4.8) Monocytes # (Auto) 0.6 K/uL (0.1-1.0) Eosinophils # (Auto) 0.11 K/uL (0.00-0.70) Basophils # (Auto) 0.05 K/uL (0.00-0.20) Absolute Immature Granulocyte (auto 0.02 K/uL (0-1) Nucleated Red Blood Cells 0.0 % (0.0-0.19) Sodium Level 133 mmol/L (136-145) L Potassium Level 4.6 mmol/L (3.5-5.1) Chloride Level 97 mmol/L (101-111) L Carbon Dioxide Level 28 mmol/L (21-32) Blood Urea Nitrogen 9 mg/dL (7-18) Creatinine 0.6 mg/dL (0.5-1.0) Glomerular Filtration Rate Calc 111 mL/min (>90) Random Glucose 385 mg/dL (70-105) H Total Calcium 8.9 mg/dL (8.5-10.1) Lipase 59 U/L (16-77) Human Chorionic Gonadotropin, Quant 0 mIU/mL (0-5) ABDOMEN/PELVIS W/CONTRAST HISTORY: Pain COMPARISON: 10/29/2024 TECHNIQUE: Multiple sequential axial images of the abdomen and pelvis were obtained from the dome of the diaphragm through symphysis pubis. Patient was not given contrast through intravenous route. Oral contrast was not given. FINDINGS: No pleural effusion is seen bilaterally. There is no evidence of parenchymal disease or pulmonary nodule of the visualized lower lungs. Degenerative changes of the thoracolumbar spine are present. The heart is not enlarged. Liver measures 23 cm with fatty changes. The liver, spleen, adrenal glands and pancreas are unremarkable. There is no evidence of hydronephrosis bilaterally. No evidence of renal stone is seen. Fecal material is seen in the colon. There are normal size retroperitoneal and mesenteric lymph nodes. No ascites is seen. Atherosclerotic changes are present. There are borderline enlarged bilateral inguinal lymph nodes consistent adenopathy. Pelvic sidewalls are symmetric bilaterally. Bladder is well distended without wall thickening. IMPRESSION: 1. There are borderline enlarged bilateral inguinal lymph nodes consistent adenopathy. Fecal material is seen in the colon. Labs Reviewed?: Yes ED Course ED Course Orders Procedure Category Date Status Time Cbc With Differential LAB 11/05/24 Complete 20:45 Urinalysis Profile LAB 11/05/24 Logged 20:45 Ct Abdomen/Pelvis CT 11/05/24 Resulted W/Contrast 20:45 0.9%Nacl 1000ml (Ns PHA 11/05/24 Complete 1000ml) 21:00 Morphine 2mg Syg PHA 11/05/24 Complete (Morphine 2mg Syg) 21:00 Ondansetron 4mg Inj PHA 11/05/24 Complete (Zofran 4mg Inj) 21:00 Lipase LAB 11/05/24 Complete 20:45 Basic Metabolic Panel LAB 11/05/24 Complete 21:27 Hcg,Quantitative LAB 11/05/24 Complete 21:27 Iohexol (Omnipaque) PHA 11/05/24 Complete 22:04 Ketorolac PHA 11/05/24 In Process Tromethamine 30mg/Ml 23:30 Current Medications Medications (Trade) Dose Ordered Sig/Graciela Route PRN Reason Start Time Stop Time Status Last Admin Dose Admin Iohexol (Omnipaque) 35,000 mg STK-MED ONCE IV 11/05/24 22:04 11/05/24 22:04 DC Ketorolac Tromethamine (toRADol) 30 mg ONCE ONCE IVP 11/05/24 23:30 11/05/24 23:31 11/05/24 23:18 Morphine Sulfate (morPHINE 2MG SYG) 2 mg ONCE ONCE IVP 11/05/24 21:00 11/05/24 21:01 DC 11/05/24 21:08 Ondansetron HCl (zoFRAN 4MG INJ) 4 mg ONCE ONCE IVP 11/05/24 21:00 11/05/24 21:01 DC 11/05/24 21:08 Sodium Chloride 1,000 ml @ 0 mls/hr ONCE ONCE IV 11/05/24 21:00 11/05/24 21:01 DC 11/05/24 21:08 Vital Signs Date Time Temp Pulse Resp B/P (MAP) Pulse Ox O2 Delivery O2 Flow Rate FiO2 11/05/24 22:29 98.1 82 20 127/69 98 Room Air* 0 21 11/05/24 21:03 98.8 84 18 132/65 98 Room Air* 0 21 11/05/24 20:31 98.4 100 20 194/90 100 Room Air 2320/patient discharged home with no signs of Crohn's or urinary tract infection no IBS. No white count blood, diabetes is uncontrolled and she has pelvic lymphadenopathy. Medical Decision Making MDM MDM: Differential diagnosis: Appendicitis/diverticulitis/urolithiasis/IBS/Crohn/UTI Rationale: Tests considered and ordered secondary to shared decision making include: Labs/radiology Previous outside records reviewed: Old ER visits. Risk of complication and/or morbidity or mortality of patient management: None Medications-Per medication reconciliation Need for hospitalization: Patient does not meet criteria for hospitalization. No Need for emergency major/minor surgery: No There are no social concerns with this patient. Prescription drug management Bentyl/ibuprofen Prescriptions will include symptomatic care Patient's prior external medical records from other ER visits were reviewed by me as indicated. Prior testing and results from previous visits were reviewed. Prior tests were taken into account with medical decision making and resource utilization, independent historian/historians were used to obtain complete medical history. I independently interpreted the test that were performed, results were reviewed by me and considered findings on radiology if ordered. Medical management and examination interpretation discussions were had by me with other qualified healthcare professionals as indicated for the patient's care. DX & DISP Disposition: Discharge Departure Impression: Primary Impression: Uncontrolled type 2 diabetes mellitus Additional Impressions: Pelvic pain, Pelvic lymphadenopathy Condition: Stable Scripts Ibuprofen (Ibuprofen 800 mg Tab) 800 Mg Tab 800 MG PO Q8H PRN for fever or pain, #30 TAB 0 Refills Prov: FIDENCIO GIBSON BAG MACHINE ADJUSTER 11/05/24 Dicyclomine HCl (Bentyl) 20 Mg Tab 20 MG PO Q6HPRN PRN for Abdominal cramps, #30 TAB Prov: FIDENCIO GIBSON BAG MACHINE ADJUSTER 11/05/24 Additional Instructions: Follow-up with primary care provider in 1 to 2 days. Take medications as directed here in the emergency room. Okay to continue home medications unless otherwise discussed during your visit in the emergency room today. Return to your nearest emergency room if symptoms worsen or if there is no improvement. Call 911 if you need immediate assistance. Take Tylenol or Motrin [id number] as needed and if no contraindications are present. Increase oral hydration. A wound culture or urine culture was ordered here in the emergency room department please follow-up with primary care provider and advise them to get repeat ports from our facility. If you had any Scooby wrap/splints that were applied here, please do not remove them until you see your primary care or specialty. Take medications as directed for pain. Take your diabetic medications as prescribed by your doctor and see him tomorrow for follow up and management. Referrals: STEFFANY DOMINGUEZ M.D. (PCP) Time of Disposition: 23:20 I have reviewed the case, and I agree with, Diagnosis and Plan FIDENCIO GIBSON NP Nov 05, 2024 20:48
[2024-11-05] MEDS: ondanSETRON 4MG INJ IVP ONE (21:08)
[2024-11-05] MEDS: 0.9%NACL 1000ML 1,000 ML IV ONE (21:08)
[2024-11-05] MEDS: morPHINE 2 MG SYG IVP ONE (21:08)
[2024-11-05 21:15] LABS: BASOPHILS # (AUTO) 0.05 K/uL (0.00-0.20); BASOPHILS % (AUTO) 0.6 % (0.0-5.0); EOSINOPHILS # (AUTO) 0.11 K/uL (0.00-0.70); EOSINOPHILS % (AUTO) 1.4 % (0.0-8.0); HEMATOCRIT 33.2 % (36-48); IMMATURE GRANULOCYTE ABSOLUTE 0.02 K/uL (0-1); LYMPHOCYTES # (AUTO) 1.8 K/uL (1.0-4.8); LYMPHOCYTES % (AUTO) 23.4 % (21.0-51.0); MEAN CORPUSCULAR HEMOGLOBIN 26.8 pg (27.0-33.0); MEAN CORPUSCULAR HGB CONC 32.2 g/dL (32.0-36.0); MEAN CORPUSCULAR VOLUME 83.2 fL (79-99); MONOCYTES # (AUTO) 0.6 K/uL (0.1-1.0); MONOCYTES % (AUTO) 7.2 % (3.0-13.0); NEUTROPHILS # (AUTO) 5.3 K/uL (1.8-7.7); NEUTROPHILS % (AUTO) 67.1 % (40.0-77.0); PLATELET COUNT (AUTO) 327 K/uL (130-400); RED BLOOD CELL COUNT(AUTO) 3.99 MIL/uL (4.00-5.50); RED CELL DISTRIBUTION WIDTH 13.4 % (11.0-15.5); WHITE BLOOD COUNT (AUTO) 7.8 K/uL (4.8-10.8)
[2024-11-05 21:45] LABS: CREATININE 0.6 mg/dL (0.5-1.0); POTASSIUM 4.6 mmol/L (3.5-5.1)
[2024-11-05] MEDS ORDERED: IOHEXOL 350 MG/ML 100ML INFUS..BTL IV ONE (22:04)
--- NOTE | 2024-11-05 22:53 | HMCIMG ---
CT ABDOMEN/PELVIS W/CONTRAST HISTORY: Pain COMPARISON: 10/29/2024 TECHNIQUE: Multiple sequential axial images of the abdomen and pelvis were obtained from the dome of the diaphragm through symphysis pubis. Patient was not given contrast through intravenous route. Oral contrast was not given. FINDINGS: No pleural effusion is seen bilaterally. There is no evidence of parenchymal disease or pulmonary nodule of the visualized lower lungs. Degenerative changes of the thoracolumbar spine are present. The heart is not enlarged. Liver measures 23 cm with fatty changes. The liver, spleen, adrenal glands and pancreas are unremarkable. There is no evidence of hydronephrosis bilaterally. No evidence of renal stone is seen. Fecal material is seen in the colon. There are normal size retroperitoneal and mesenteric lymph nodes. No ascites is seen. Atherosclerotic changes are present. There are borderline enlarged bilateral inguinal lymph nodes consistent adenopathy. Pelvic sidewalls are symmetric bilaterally. Bladder is well distended without wall thickening. IMPRESSION: 1. There are borderline enlarged bilateral inguinal lymph nodes consistent adenopathy. Fecal material is seen in the colon. CT was performed with one or more following dose reduction techniques: automated exposure control, adjustment of the mA and kv according to patient's size, or use of a iterative reconstruction technique.
[2024-11-05] MEDS: ketOROlac 30MG VIAL (30MG/ML) IVP ONE (23:18)
[2024-11-05 23:19] VITALS: BP 135/74; PULSE 87; RESP 18; TEMP 98.4; O2SAT 98
[2024-11-05] MEDS ORDERED: DICY20TA2 PO (23:21)
[2024-11-05] MEDS ORDERED: IBUP-2077 PO (23:21)
== END 2024-11-05 23:32 | disposition home or self-care (01) ==
LOC: EDH 20:29
DX: R59.0 Localized enlarged lymph nodes (principal); E11.65 Type 2 diabetes mellitus with hyperglycemia; R10.2 Pelvic and perineal pain; E78.00 Pure hypercholesterolemia, unspecified; Z79.899 Other long term (current) drug therapy; Z89.511 Acquired absence of right leg below knee; Z98.890 Other specified postprocedural states
CPT/HCPCS: 99284; 74177; 96374; 96375; 80048; 84702; 83690; 85025; 36415; J1885; J2270; J7030; J2405; Q9967

== ENCOUNTER 2025-01-02 22:01 | Emergency (ER) | payer BC ==
[~2025-01-02] VITALS: Ht 162.6 cm; Wt 104.3 kg
[~2025-01-02 22:01] MED LIST changes: +DICY20TA2 PO; +IBUP-2077 PO
[2025-01-02 22:32] LABS: BASOPHILS # (AUTO) 0.04 K/uL (0.00-0.20); BASOPHILS % (AUTO) 0.5 % (0.0-5.0); EOSINOPHILS # (AUTO) 0.11 K/uL (0.00-0.70); EOSINOPHILS % (AUTO) 1.5 % (0.0-8.0); IMMATURE GRANULOCYTE ABSOLUTE 0.01 K/uL (0-1); LYMPHOCYTES % (AUTO) 27.1 % (21.0-51.0); MEAN CORPUSCULAR HEMOGLOBIN 24.5 pg (27.0-33.0); MEAN CORPUSCULAR HGB CONC 30.9 g/dL (32.0-36.0); MEAN CORPUSCULAR VOLUME 79.3 fL (79-99); MONOCYTES # (AUTO) 0.6 K/uL (0.1-1.0); MONOCYTES % (AUTO) 8.3 % (3.0-13.0); NEUTROPHILS # (AUTO) 4.7 K/uL (1.8-7.7); NEUTROPHILS % (AUTO) 62.5 % (40.0-77.0); PLATELET COUNT (AUTO) 362 K/uL (130-400); RED BLOOD CELL COUNT(AUTO) 4.16 MIL/uL (4.00-5.50); RED CELL DISTRIBUTION WIDTH 14.3 % (11.0-15.5); WHITE BLOOD COUNT (AUTO) 7.5 K/uL (4.8-10.8)
--- NOTE | 2025-01-02 22:32 | ERN ---
General Chief Complaint: Multiple Complaints Stated Complaint: CHEST PAIN, SOB, LEFT ARM NUMBNESS, NECK PAIN, Time Seen by MD: 22:06 Source: patient History of Present Illness Initial Comments Patient is a 49-year-old female who was working in a yard sale today and then afterwards she felt some numbness and chills running down her neck and her left arm. And then a little bit later was followed by left anterior chest wall pain. 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 She states no fever, or chills in the rest of her body. No change in urination or defecating no chest pain beyond the anterior left chest wall, no shortness of breath. The left chest wall pain is tender to palpation. Allergies: Coded Allergies: No Known Drug Allergies (Verified Allergy, Severe, 05/30/15) Home Meds Active Scripts Ibuprofen (Ibuprofen 800 mg Tab) 800 Mg Tab, 800 MG PO Q8H PRN for fever or pain, #30 TAB 0 Refills Prov:FIDENCIO GIBSON DINKEY OPERATOR 11/05/24 Dicyclomine HCl (Bentyl) 20 Mg Tab, 20 MG PO Q6HPRN PRN for Abdominal cramps, #30 TAB Prov:FIDENCIO GIBSON DINKEY OPERATOR 11/05/24 Hyoscyamine Sulfate (Levsin-Sl) 0.125 Mg Tab.subl, 0.125 MG SL q 8 hours PRN for abdominal pain/cramping, #10 TAB.SL 0 Refills Prov:PARI MCKEON DINKEY OPERATOR 10/30/24 Polyethylene Glycol 3350 (Miralax) 17 Gram Powd.pack, 1 PACKET PO DAILY for constipation for 7 Days, #14 PACKET 0 Refills dissolve in water Prov:PARI MCKEON DINKEY OPERATOR 10/30/24 Ondansetron (Ondansetron Odt) 4 Mg Tab.rapdis, 4 MG PO Q6HPRN PRN for nausea, #15 TAB 0 Refills Prov:PARI MCKEON DINKEY OPERATOR 10/30/24 Cephalexin (Cephalexin) 500 Mg Tablet, 500 MG PO BID for 10 Days, #20 TAB Prov:PARI MCKEON DINKEY OPERATOR 10/30/24 Ondansetron HCl (Zofran) 4 Mg Tablet, 4 MG PO TIDP PRN for NAUSEA, #20 TAB 0 Refills Prov:MANDY GIRARD MD 09/03/18 Prednisone (Prednisone) 20 Mg Tablet, 20 MG PO DAILYBKFST for 5 Days, TAB 0 Refills Prov:MANDY GIRARD MD 09/03/18 Ciprofloxacin HCl (Cipro) 250 Mg Tablet, 250 MG PO BID for 3 Days, TAB 0 Refills Prov:MANDY GIRARD MD 09/03/18 Past Medical History Past Medical History: Diabetes-Type II, High Cholesterol, Other Medical History Other: CROHN'S DISEASE Past Surgical History: None, Surgical History Other: RT BKA Social History Social History: Negative, Lives with family Female( History) History: Not Applicable Constitutional: (-) chills, (-) diaphoresis, (-) fever, (-) malaise, (-) weakness, (-) other documentation EENTM: (-) eye pain, (-) blurred vision, (-) tearing, (-) double vision, (-) ear pain, (-) ear discharge, (-) nose pain, (-) nose congestion, (-) throat pain, (-) Throat swelling, (-) mouth pain, (-) tooth pain, (-) mouth swelling, (-) other documentation Respiratory: (-) cough, (-) orthopnea, (-) short of breath, (-) stridor, (-) wheezing, (-) other documentation Cardiovascular: (+) chest pain; (-) edema, (-) palpitations, (-) syncope, (-) dyspnea on exertion, (-) other documentation Gastrointestinal/Abdominal: (-) nausea, (-) vomiting, (-) diarrhea, (-) abdominal pain, (-) abdominal distention, (-) constipation, (-) rectal bleeding, (-) dark stool/melena, (-) other documentation Musculoskeletal: (-) Neck pain, (-) back pain, (-) Flank Pain, (-) joint pain, (-) joint swelling, (-) muscle pain, (-) muscle stiffness, (-) gout, (-) other documentation Skin: (-) laceration, (-) contusion, (-) abrasion, (-) abscess, (-) rash, (-) change in color, (-) change in hair, (-) change in nails, (-) diaphoresis, (-) dryness, (-) other documentation Neuro: (-) altered mental status, (-) headache, (-) syncope, (-) paralysis, (-) numbness, (-) seizure, (-) pre-existing deficit, (-) tremors, (-) weakness, (-) dizziness, (-) slurred speech, (-) vertigo, (-) other documentation Physical Exam General Appearance: (+) no apparent distress Orientation: (+) alert Head/Face Trauma: No Eye: bilateral eye normal inspection, bilateral eye PERRL, bilateral eye EOMI Ear, Nose, Throat: (+) hearing grossly normal, (+) normal ENT inspection Neck: (+) normal inspection, (+) supple, (+) full range of motion, (+) no JVD Neck Comment Mild paraspinal muscle tenderness Respiratory Comment Chest wall tenderness left anterior superior Gastrointestinal: (+) soft, (+) non-tender, (+) bowel sound present Results Laboratory and Microbiology Lab and Micro Result Laboratory Tests Test 01/02/25 22:26 White Blood Count 7.5 K/uL (4.8-10.8) Red Blood Count 4.16 MIL/uL (4.00-5.50) Hemoglobin 10.2 g/dL (12.0-16.0) L Hematocrit 33.0 % (36-48) L Mean Corpuscular Volume 79.3 fL (79-99) Mean Corpuscular Hemoglobin 24.5 pg (27.0-33.0) L Mean Corpuscular Hemoglobin Concent 30.9 g/dL (32.0-36.0) L Red Cell Distribution Width 14.3 % (11.0-15.5) Platelet Count 362 K/uL (130-400) Mean Platelet Volume 11.1 fL (7.5-10.5) H Immature Granulocyte % (Auto) 0.1 % (0-1) Neutrophils (%) (Auto) 62.5 % (40.0-77.0) Lymphocytes (%) (Auto) 27.1 % (21.0-51.0) Monocytes (%) (Auto) 8.3 % (3.0-13.0) Eosinophils (%) (Auto) 1.5 % (0.0-8.0) Basophils (%) (Auto) 0.5 % (0.0-5.0) Neutrophils # (Auto) 4.7 K/uL (1.8-7.7) Lymphocytes # (Auto) 2.0 K/uL (1.0-4.8) Monocytes # (Auto) 0.6 K/uL (0.1-1.0) Eosinophils # (Auto) 0.11 K/uL (0.00-0.70) Basophils # (Auto) 0.04 K/uL (0.00-0.20) Absolute Immature Granulocyte (auto 0.01 K/uL (0-1) Nucleated Red Blood Cells 0.0 % (0.0-0.19) Red Blood Cell Morphology See comments Sodium Level 134 mmol/L (136-145) L Potassium Level 3.9 mmol/L (3.5-5.1) Chloride Level 100 mmol/L (101-111) L Carbon Dioxide Level 27 mmol/L (21-32) Blood Urea Nitrogen 16 mg/dL (7-18) Creatinine 0.9 mg/dL (0.5-1.0) Glomerular Filtration Rate Calc 79 mL/min (>90) Random Glucose 319 mg/dL (70-105) H Total Calcium 9.1 mg/dL (8.5-10.1) Troponin I High Sensitivity 6 ng/L (4-50) B-Type Natriuretic Peptide 17 pg/mL (0-100) MDM I suspect the patient has some sort of musculoskeletal pain from working in her yard sale today, although patient denies any overexertion or straining. Given her diabetes we will check for cardiac ischemia with a an EKG troponins. Patient's EKG is normal patient's chest x-ray is normal patient's chemistry panel is normal patient's BNP and troponin are normal patient's CBC is normal. I gave her a cyclobenzaprine for her neck pain and Tylenol for her headache and fluid. ED Course Orders Procedure Category Date Status Time Vital Signs Per CPOE 01/02/25 Transmitted Routine 22:05 B-Type Natriuretic LAB 01/02/25 Complete Peptide 22:05 Chest 1vw RAD 01/02/25 Taken 22:05 12 Lead Ekg Tracing- EKG 01/02/25 Logged Technical 22:05 Oxygen By Nc/Pulse Ox CPOE 01/02/25 Transmitted 22:05 Maintain Iv CPOE 01/02/25 Transmitted 22:05 Iv Insertion CPOE 01/02/25 Transmitted 22:05 Cardiac Monitoring CPOE 01/02/25 Transmitted 22:05 Pulse Oximetry With CPOE 01/02/25 Transmitted Vs And Prn 22:05 Cbc With Differential LAB 01/02/25 Complete 22:05 Activity: Br W/Brp CPOE 01/02/25 Transmitted With Assist 22:05 Troponin I High LAB 01/02/25 Complete Sensitivity 22:05 Urinalysis Profile LAB 01/02/25 Logged 22:05 Basic Metabolic Panel LAB 01/02/25 Complete 22:05 Cyclobenzaprine Hcl PHA 01/03/25 Complete (Cyclobenzaprine Hcl 00:00 Acetaminophen 650mg PHA 01/03/25 Complete Elixir (Tylenol 650m 00:00 Lactated Ringers PHA 01/03/25 In Process 1000ml (Lactated 00:00 Acetaminophen 325 Tab PHA 01/02/25 Complete (Tylenol 325mg Tab 23:59 Acetaminophen 325 Tab PHA 01/03/25 In Process (Tylenol 325mg Tab 00:30 Current Medications Medications (Trade) Dose Ordered Sig/Graciela Route PRN Reason Start Time Stop Time Status Last Admin Dose Admin Acetaminophen (TYLenol 325MG TAB) 325 mg STK-MED ONCE .ROUTE 01/02/25 23:59 01/02/25 23:59 DC Acetaminophen (TYLenol 325MG TAB) 650 mg ONCE ONCE PO 01/03/25 00:30 01/03/25 00:31 01/03/25 00:12 Acetaminophen (TYLenol 650MG ELIXIR) 650 mg ONCE ONCE PEG 01/03/25 00:00 01/03/25 00:10 DC Cyclobenzaprine HCl (Cyclobenzaprine HCl) 10 mg ONCE ONCE PO 01/03/25 00:00 01/03/25 00:01 DC 01/03/25 00:08 Lactated Ringer's (Lactated Ringers 1000ml) 1,000 ml BOLUS IV 01/03/25 00:00 02/02/25 00:00 Vital Signs Date Time Temp Pulse Resp B/P (MAP) Pulse Ox O2 Delivery O2 Flow Rate FiO2 01/02/25 22:55 89 18 155/65 98 Room Air* 0 21 01/02/25 22:21 97.9 92 18 194/93 96 Room Air* 0 21 01/02/25 22:03 97.9 97 20 216/99 95 Room Air DX & DISP Disposition: Discharge Departure Impression: Primary Impression: Dehydration Condition: Stable Additional Instructions: Tylenol and motrin for headaches. Drink lots of fluid. See mixer operator helper hot metal if symptoms continue. Referrals: STEFFANY DOMINGUEZ M.D. (PCP) CRISTINA ANDERSON MD Jan 02, 2025 22:32
[2025-01-02 23:23] LABS: B-TYPE NATRIURETIC PEPTIDE 17 pg/mL (0-100)
[2025-01-02 23:24] LABS: CREATININE 0.9 mg/dL (0.5-1.0); POTASSIUM 3.9 mmol/L (3.5-5.1)
[2025-01-03] MEDS ORDERED: acetaMINOPHEN 650 MG/20.3 ML UDCUP PEG ONE
[2025-01-03] MEDS: CYCLOBENZAPRINE HCL 10 MG TABLET PO ONE (00:08)
[2025-01-03] MEDS: acetaMINOPHEN 325 MG TAB PO ONE (00:12)
[2025-01-03] MEDS: acetaMINOPHEN 325 MG TAB ONE (00:32)
[2025-01-03] MEDS: LACTATED RINGERS 1000ML IV SCH (00:58)
[2025-01-03 02:27] VITALS: BP 139/66; PULSE 82; RESP 18; TEMP 97.5; O2SAT 96
--- NOTE | 2025-01-03 07:24 | EKG ---
[facility] Test Date: 2025-01-02 Test Time: 22:10:25 Pat Name: BLU INFANTE Department: ED Room: Gender: F Carriage Dogger: [id number] : 1975 Requested By: CRISTINA ANDERSON Order Number: [id number] Reading MD: Radha Jiménez Measurements Intervals [place] Rate: 91 P: 55 [place]: 135 QRS: -18 QRSD: 88 T: 42 QT: 371 QTc: 457 Interpretive Statements Sinus rhythm Compared to ECG 01/11/2019 20:50:40 No significant changes Electronically Signed On 01-03-2025 15:03:54 CDT by Radha Jiménez Please click the below link to view image of tracing.
--- NOTE | 2025-01-03 08:28 | HMCIMG ---
PORTABLE CHEST RADIOGRAPH INDICATION: CHEST PAIN COMPARISON: 07/18/2019 FINDINGS: library monitor leads overlie the field of view. Heart size is normal. The pulmonary vascularity and ronit appear normal. No abnormal pulmonary parenchymal opacity or consolidation identified. No significant pleural effusion noted. No pneumothorax detected. IMPRESSION: No radiographic evidence for any acute cardiopulmonary process.
== END 2025-01-03 02:29 | disposition home or self-care (01) ==
LOC: EDH 22:01
DX: E86.0 Dehydration (principal); E78.00 Pure hypercholesterolemia, unspecified; E11.9 Type 2 diabetes mellitus without complications; Z89.511 Acquired absence of right leg below knee; Z79.899 Other long term (current) drug therapy
CPT/HCPCS: 99284; 71045; 84484; 80048; 83880; 85025; 36415; 93005; J7120

== ENCOUNTER 2025-05-20 23:04 | Emergency (ER) | payer BC ==
[~2025-05-20] VITALS: Ht 162.6 cm; Wt 108.9 kg
--- NOTE | 2025-05-20 23:20 | ERN ---
ED Note History of Present Illness Stated Complaint: C/O COUGH,SORE THROAT,RT EAR PAIN, HEADACHE X 1 WK Chief Complaint: Cough Time Seen by : 23:17 Dictation: This is a 49-year-old female who presented to the emergency room with complaints of cough sore throat right earache and also a slight headache for the past 1 week. She stated that she had sniffles and felt really bad thought she would improve on her own as symptoms persisted she came into the ER for further evaluation. She also reported subjective fevers. She stated that many of her grandchildren are sick. No travel or new pets at home. She does report some sputum in small amounts. She could not elaborate more on that. Despite the sore throat she is able to drink liquids without any problems. No problem with drooling. Temperature 98.2 pulse 94 respirations 20 blood pressure 177/82 with a pulse oximetry of 95% on room air Chronic medical problems include diabetes mellitus type 2, hypertension and hypercholesterolemia Allergies: Coded Allergies: No Known Drug Allergies (Verified Allergy, Severe, 05/30/15) Home Meds Active Scripts Amoxicillin/Potassium Clav (Amox Tr-K Clv 875-125 mg Tab) 875 Mg-125 Mg Tablet, 1 EACH PO BID for 5 Days, #10 TAB 0 Refills Prov:JIGNA GLEASON MD 05/20/25 Ibuprofen (Ibuprofen 800 mg Tab) 800 Mg Tab, 800 MG PO Q8H PRN for fever or pain, #30 TAB 0 Refills Prov:FIDENCIO GIBSON NP 11/05/24 Dicyclomine HCl (Bentyl) 20 Mg Tab, 20 MG PO Q6HPRN PRN for Abdominal cramps, #30 TAB Prov:FIDENCIO GIBSON NP 11/05/24 Hyoscyamine Sulfate (Levsin-Sl) 0.125 Mg Tab.subl, 0.125 MG SL q 8 hours PRN for abdominal pain/cramping, #10 TAB.SL 0 Refills Prov:PARI MCKEON NP 10/30/24 Polyethylene Glycol 3350 (Miralax) 17 Gram Powd.pack, 1 PACKET PO DAILY for constipation for 7 Days, #14 PACKET 0 Refills dissolve in water Prov:PARI MCKEON NP 10/30/24 Ondansetron (Ondansetron Odt) 4 Mg Tab.rapdis, 4 MG PO Q6HPRN PRN for nausea, #15 TAB 0 Refills Prov:PARI MCKEON [employer] 10/30/24 Cephalexin (Cephalexin) 500 Mg Tablet, 500 MG PO BID for 10 Days, #20 TAB Prov:PARI MCKEON [employer] 10/30/24 Ondansetron HCl (Zofran) 4 Mg Tablet, 4 MG PO TIDP PRN for NAUSEA, #20 TAB 0 Refills Prov:MANDY GIRARD MD 09/03/18 Prednisone (Prednisone) 20 Mg Tablet, 20 MG PO DAILYBKFST for 5 Days, TAB 0 Refills Prov:MANDY GIRARD MD 09/03/18 Ciprofloxacin HCl (Cipro) 250 Mg Tablet, 250 MG PO BID for 3 Days, TAB 0 Refills Prov:MANDY GIRARD MD 09/03/18 Past Medical History Past Medical History: Diabetes-Type II, High Cholesterol, Hypertension Additional Past Medical Hx: CROHN'S DISEASE Surgical History: Other Surgical History Other: RT KNEE SX Social History: Negative, Lives with family History: Not Applicable RN Note Reviewed/Agreed w/PFSH: Yes Review of System Dictation Constitutional: Negative for fever,chills, and weight loss Eyes: Negative for injury, pain,redness, and discharge ENT: Negative for injury,pain or swelling positive for sore throat and right earache Cardiovascular: Negative for chest pain, palpitations, and edema Respiratory: Negative for shortness of breath, cough, and wheezing, Abdomen/GI: Negative for abdominal pain, nausea, vomiting, diarrhea, and constipation Back: Negative for injury and pain : Negative for injury, bleeding and discharge MS/Extremity: Negative for injury and deformity Skin: Negative for rash, and discoloration Neuro: Negative for headache, weakness, numbness, tingling, and seizure Psych: Negative for suicide ideation, homicidal ideation, and hallucinations Initial Vital Sign VS Vital Signs Date Time Temp Pulse Resp B/P (MAP) Pulse Ox O2 Delivery O2 Flow Rate FiO2 05/20/25 23:08 98.2 94 20 177/82 95 Room Air 05/20/25 23:34 0 21 Physical Exam Dictation General: awake, alert, NAD morbidly obese Head/Face: Normocephalic, atraumatic halitosis Eyes: PERRL, EOMI, vision at baseline ENT: oral cavity clear, TMs clear, no signs of infection posterior pharyngeal wall erythema but I did not appreciate any exudate or pus Neck: Trachea midline, supple, no nuchal rigidity Cardiovascular: RRR, normal S1/S2, No MRGs, no JVD Respiratory: CTAB, no respiratory distress, No rales or wheezes Abdomen: Soft, non-tender, non-distended, normal bowel sounds, no guarding or rebound. Skin: Warm, dry, normal turgor, no rash MS/Extremity: Pulses equal, no cyanosis, neurovascular intact, FROM Neuro: COAx4, GCS 15, strength 5/5, CN 2-12 intact, normal cerebellar exam, normal gait, Psych: Normal behavior, mood, and affect normal Extremities-trace edema without any palpable cords, Homans sign is negative Results (Laboratory/Radiology) Laboratory/Radiology Laboratory Tests Test 05/20/25 23:12 Influenza Type A Antigen Negative For Type A Influenza Type B Antigen Negative For Type B SARS-CoV-2, RNA, NAAT NEGATIVE SARS CoV-2 Group A Streptococcus Rapid positive (NEGATIVE) *A Labs Reviewed?: Yes ED Course ED Course Orders Procedure Category Date Status Time Covid Rna Naat LAB 05/20/25 Complete 23:07 Influenza Type A & B, LAB 05/20/25 Complete Rapid 23:07 Rapid (Group A Strep) LAB 05/20/25 Complete 23:07 Ketorolac PHA 05/21/25 Complete Tromethamine 30mg/Ml 00:00 Ceftriaxone 1g Vial PHA 05/21/25 Complete (Rocephine 1g Inj) 00:00 Current Medications Medications (Trade) Dose Ordered Sig/Graciela Route PRN Reason Start Time Stop Time Status Last Admin Dose Admin Ceftriaxone Sodium (ROCEphine 1G INJ) 1 gm ONCE ONCE IM 05/21/25 00:00 05/21/25 00:01 DC 05/20/25 23:49 Ketorolac Tromethamine (toRADol) 30 mg ONCE ONCE IM 05/21/25 00:00 05/21/25 00:01 DC 05/20/25 23:49 Vital Signs Date Time Temp Pulse Resp B/P (MAP) Pulse Ox O2 Delivery O2 Flow Rate FiO2 05/20/25 23:34 98.2 84 20 147/68 95 Room Air* 0 21 8/28/25 23:08 98.2 94 20 177/82 95 Room Air We will perform diagnostic labs, and administer medications according to the patient's complaint. Once the results are available, will review and personally interpreted the labs to rule out any acute life-threatening emergency the trach require immediate intervention and treatment. I will then re-evaluate the patient after treatment and diagnostic exams have return to determine whether the patient requires any further testing, can safely be discharged home or need further admission to hospital for additional treatment and evaluation. Labs reviewed swabs for influenza, COVID are negative however group a strep swab was positive. I updated the patient on test results and plan for nonsteroidal anti- inflammatory agent and antibiotic and she is agreeable. She will be discharged to home with a course of antibiotics as outpatient Medical Decision Making MDM Differential diagnosis: Influenza, COVID, streptococcal pharyngitis, acute viral syndrome, bronchitis Rationale: Tests considered and ordered secondary to shared decision making include: Previous outside records reviewed: Old ER visits. Risk of complication and/or morbidity or mortality of patient management: None Medications-Per medication reconciliation Need for hospitalization: Patient does not meet criteria for hospitalization. Need for emergency major/minor surgery: No There are no social concerns with this patient. Prescription drug management Prescriptions will include symptomatic care Patient's prior external medical records from other ER visits were reviewed by me as indicated. Prior testing and results from previous visits were reviewed. Prior tests were taken into account with medical decision making and resource utilization, independent historian/historians were used to obtain complete medical history. I independently interpreted the test that were performed, results were reviewed by me and considered findings on radiology if ordered. Medical management and examination interpretation discussions were had by me with other qualified healthcare professionals as indicated for the patient's care. Problem List Problem List: (1) Acute streptococcal pharyngitis (2) Upper respiratory infection (3) Uncontrolled type 2 diabetes mellitus DX & DISP Disposition: Discharge Departure Impression: Primary Impression: Acute streptococcal pharyngitis Additional Impressions: Upper respiratory infection, Uncontrolled type 2 diabetes mellitus Condition: Stable Scripts Amoxicillin/Potassium Clav (Amox Tr-K Clv 875-125 mg Tab) 875 Mg-125 Mg Tablet 1 EACH PO BID for 5 Days, #10 TAB 0 Refills Prov: JIGNA GLEASON MD 05/20/25 Additional Instructions: Patient and the caregiver have been informed of all the diagnostic tests and the imaging conducted during the today's visit to the emergency room and has verbalized understanding of the results I have personally reviewed and interpreted all diagnostic exams performed here in the ER today as well as the vital signs documented by the nursing staff. The patient is now being discharged to home and should follow up with the primary care physician or the specialist as directed by the ER staff. Follow-up with primary care provider in 1 to 2 days. Take medications as directed here in the emergency room. Okay to continue home medications unless otherwise discussed during your visit in the emergency room today. Return to your nearest emergency room if symptoms worsen or if there is no improvement. Call 911 if you need immediate assistance. Take Tylenol or Motrin [id number] as needed and if no contraindications are present. Increase oral hydration. A wound culture or urine culture was ordered here in the emergency room department please follow-up with primary care provider and advise them to get repeat ports from our facility. If you had any Scooby wrap/splints that were applied here, please do not remove them until you see your primary care or specialty. Referrals: STEFFANY DOMINGUEZ M.D. (PCP) JIGNA GLEASON MD May 20, 2025 23:20
[2025-05-20 23:34] VITALS: BP 147/68; PULSE 84; RESP 20; TEMP 98.2; O2SAT 95
[2025-05-20 23:35] LABS: RAPID GROUP A STREP positive (NEGATIVE)
[2025-05-20 23:42] LABS: SARS-CoV-2, RNA, NAAT NEGATIVE SARS CoV-2 (NEGATIVE)
[2025-05-20] MEDS ORDERED: AMOX1TAB16 PO (23:49)
[2025-05-20 23:51] LABS: INFLUENZA TYPE A Negative For Type A (NEGATIVE); INFLUENZA TYPE B Negative For Type B (NEGATIVE)
== END 2025-05-21 00:22 | disposition home or self-care (01) ==
LOC: EDH 23:04
DX: J02.0 Streptococcal pharyngitis (principal); E11.65 Type 2 diabetes mellitus with hyperglycemia; E78.00 Pure hypercholesterolemia, unspecified; I10 Essential (primary) hypertension; Z20.822 Contact with and (suspected) exposure to COVID-19
CPT/HCPCS: 99284; 87635; 87880; 87804 ×2; 96372 ×2; J1885; J0696

== ENCOUNTER 2025-08-28 15:39 | Emergency (ER) | payer BC ==
[~2025-08-28] VITALS: Ht 162.6 cm; Wt 102.1 kg
--- NOTE | 2025-08-28 15:48 | ERN ---
ED Note History of Present Illness Stated Complaint: LT LEG PAIN Chief Complaint: Lower Extremity Pain/Injury Time Seen by MD: 15:40 Dictation: PATIENT IS A 50-YEAR-OLD MORBIDLY OBESE FEMALE COMING IN TODAY WITH NON TRAUMA LEFT LATERAL LUMBAR PAIN THAT RUNS DOWN HER LEFT LEG TO HER FOOT POSTERIORLY SINCE TWO DAYS AGO. SHE STATES SHE HAS NO HISTORY OF PRIOR INJURIES OR SURGERIES. STATES SHE HAD WOKEN UP WITH THE PAIN AND IT GOT PROGRESSIVELY WORSE DURING THE DAY. SHE DENIES TRAUMA. THERE WAS NO CHANGE IN BOWEL OR BLADDER FUNCTION NO SADDLE PARESTHESIA. NO FOOT DROP IN TRIAGE. SHE TOOK SHE HAS SOME IBUPROFEN EARLIER THIS MORNING. 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 Allergies: Coded Allergies: No Known Drug Allergies (Verified Allergy, Severe, 05/30/15) Home Meds Active Scripts Amoxicillin/Potassium Clav (Amox Tr-K Clv 875-125 mg Tab) 875 Mg-125 Mg Tablet, 1 EACH PO BID for 5 Days, #10 TAB 0 Refills Prov:JIGNA GLEASON MD 05/20/25 Ibuprofen (Ibuprofen 800 mg Tab) 800 Mg Tab, 800 MG PO Q8H PRN for fever or pain, #30 TAB 0 Refills Prov:FIDENCIO GIBSON [employer] SAL[employer]OCIATE 11/05/24 Dicyclomine HCl (Bentyl) 20 Mg Tab, 20 MG PO Q6HPRN PRN for Abdominal cramps, #30 TAB Prov:FIDENCIO GIBSON [employer] SALES [employer]OCIATE 11/05/24 Hyoscyamine Sulfate (Levsin-Sl) 0.125 Mg Tab.subl, 0.125 MG SL q 8 hours PRN for abdominal pain/cramping, #10 TAB.SL 0 Refills Prov:PARI MCKEONP 10/30/24 Polyethylene Glycol 3350 (Miralax) 17 Gram Powd.pack, 1 PACKET PO DAILY for constipation for 7 Days, #14 PACKET 0 Refills dissolve in water Prov:PARI MCKEON 10/30/24 Ondansetron (Ondansetron Odt) 4 Mg Tab.rapdis, 4 MG PO Q6HPRN PRN for nausea, #15 TAB 0 Refills Prov:PARI MCKEONP 10/30/24 Cephalexin (Cephalexin) 500 Mg Tablet, 500 MG PO BID for 10 Days, #20 TAB Prov:PARI MCKEON [employer] SALES [employer]OCIATE 10/30/24 Ondansetron HCl (Zofran) 4 Mg Tablet, 4 MG PO TIDP PRN for NAUSEA, #20 TAB 0 Refills Prov:MANDY GIRARD MD 09/03/18 Prednisone (Prednisone) 20 Mg Tablet, 20 MG PO DAILYBKFST for 5 Days, TAB 0 Refills Prov:MANDY GIRARD MD 09/03/18 Ciprofloxacin HCl (Cipro) 250 Mg Tablet, 250 MG PO BID for 3 Days, TAB 0 Refills Prov:MANDY GIRARD MD 09/03/18 Past Medical History Past Medical History: Diabetes-Type II, High Cholesterol, Hypertension Additional Past Medical Hx: CROHN'S DISEASE Surgical History: Other Surgical History Other: RT KNEE SX Social History: Negative, Lives with family History: Not Applicable RN Note Reviewed/Agreed w/PFSH: Yes Review of System Dictation CONSTITUTIONAL: NEGATIVE EXCEPT FOR HPI HEAD/FACE: NEGATIVE EXCEPT FOR HPI EENT: NEGATIVE EXCEPT FOR HPI RESPIRATORY: NEGATIVE EXCEPT FOR HPI GASTROINTESTINAL/ABDOMINAL: NEGATIVE EXCEPT FOR HPI GENITOURINARY: NEGATIVE EXCEPT FOR HPI MUSCULOSKELETAL: NEGATIVE EXCEPT FOR HPI LEFT LATERAL LUMBAR PAIN WITH SCIATICA DUE RUNNING DOWN LEFT LEG TO FOOT INTEGUMENTARY: NEGATIVE EXCEPT FOR HPI NEUROLOGICAL/PSYCH: NEGATIVE EXCEPT FOR HPI HEMATOLOGIC/LYMPHATIC: NEGATIVE EXCEPT FOR HPI ALL SYSTEMS NEGATIVE, EXCEPT NOTED ABOVE. 13 POINT REVIEW OF SYSTEMS ASSESSED AND ALL NEGATIVE EXCEPT FOR ABOVE. Initial Vital Sign VS Vital Signs Date Time Temp Pulse Resp B/P (MAP) Pulse Ox O2 Delivery O2 Flow Rate FiO2 08/28/25 15:40 97.9 89 20 156/85 99 Room Air Physical Exam Dictation VITAL SIGNS REVIEWED MODERATE ACUTE DISTRESS, WELL DEVELOPED, NOURISHED. MORBID OBESITY HEAD AND FACE: NON-TRAUMATIC. EYES: PERRL, PINK CONJUNCTIVAS, EYELID NO TRAUMA, ANTERIOR CHAMBER WITH ARCUS SENILIS. EARS: PINNAS INTACT AND NO SIGNS OF TRAUMA OR ERYTHEMA EAR CANALS CLEAR AND NO DISCHARGE TM NO ERYTHEMA NOSE: NO DISCHARGE, NO BLEEDING. OROPHARYNX: MOUTH NORMAL, TONGUE PINK, PHARYNX CLEAR,NO ERYTHEMA, TONSILS NO EXUDATES, NO ABSCESSES NOTED, MUCOUS MEMBRANE MOIST NECK: SUPPLE, NON-TENDER, NO THYROMEGALY, NO MASSES, NO JVD, NO BRUITS BREAST:DEFERRED CHEST:NO TENDERNESS, NO CREPITUS, NO PARADOXICAL MOVEMENT, NO RETRACTIONS LUNGS:CLEAR, WELL-VENTILATED, SYMMETRIC, NO RALES, NO WHEEZING, NO RHONCHI, NO STRIDOR, GOOD BREATH SOUNDS BILATERALLY HEART: REGULAR RATE, REGULAR RHYTHM, NO MURMUR, NO GALLOPS VASCULAR: NO PERIPHERAL EDEMA, ABDOMEN: SOFT, POSITIVE BOWEL SOUNDS, NONDISTENDED, NO GUARDING, NONTENDER, NO REBOUND, NO MASSES NO HEPATOMEGALY, NO SPLENOMEGALY, NO SMITH'S SIGN, NO HERNIAS. RECTAL: DEFERRED GENITAL: DEFERRED NEUROLOGICAL: NORMAL SPEECH, MOTOR FUNCTION INTACT, SENSORY FUNCTION INTACT MUSCULOSKELETAL: NECK NONTENDER, FULL RANGE OF MOTION, LEFT LATERAL DIFFUSE LUMBAR SACRAL PAIN. NO STEP-OFFS POSITIVE STRAIGHT LEG RAISE 10 LEFT EXTREMITIES: NONTENDER, FULL RANGE OF MOTION SKIN: COLOR PINK, DRY, NO TURGOR, NO RASH, NO LACERATIONS, NO ABRASIONS, NO CONTUSIONS. LYMPHATIC: DEFERRED Results (Laboratory/Radiology) Laboratory/Radiology 1630/CHEST X-RAY IS WOULD POPULATE ON PACS WHEN LOOKING UP FOR LUMBAR FILM. SPOKE WITHIsaura nurse tunnel heading supervisor who spoke with Radiology. There was a transfer position of the x-ray demonstrated with the another patient LUMBAR X-RAY DEMONSTRATES DEGENERATIVE CHANGES ONLY Labs Reviewed?: Yes ED Course ED Course Orders Procedure Category Date Status Time Acetaminophen 500mg PHA 08/28/25 Complete Tab (Tylenol 500mg T 16:00 Ketorolac 60mg/2ml PHA 08/28/25 Complete (Toradol 60mg/2ml) 16:00 Cyclobenzaprine Hcl PHA 08/28/25 Complete (Cyclobenzaprine Hcl 16:00 Dexamethasone 4mg/Ml PHA 08/28/25 Complete 1ml Vial (Dexametha 16:00 Lumbar Spine 2-3vws RAD 08/28/25 Taken 15:44 Current Medications Medications (Trade) Dose Ordered Sig/Graciela Route PRN Reason Start Time Stop Time Status Last Admin Dose Admin Acetaminophen (TYLenol 500MG TAB) 1,000 mg ONCE ONCE PO 08/28/25 16:00 08/28/25 16:01 DC Cyclobenzaprine HCl (Cyclobenzaprine HCl) 10 mg ONCE ONCE PO 08/28/25 16:00 08/28/25 16:01 DC Dexamethasone Sodium Phosphate (dexaMETHasone 4MG/ML 1ML VIAL) 8 mg ONCE ONCE IM 08/28/25 16:00 08/28/25 16:01 DC Ketorolac Tromethamine (toRADol 60MG/ 2ML) 60 mg ONCE ONCE IM 08/28/25 16:00 08/28/25 16:01 DC Vital Signs Date Time Temp Pulse Resp B/P (MAP) Pulse Ox O2 Delivery O2 Flow Rate FiO2 08/28/25 15:40 97.9 89 20 156/85 99 Room Air Medical Decision Making [facility] 1705/MEDICAL DECISION-MAKING BASED ON EMPIRIC TREATMENT FOR ACUTE LOW BACK PAIN WITH SCIATICA LUMBAR X-RAY DEMONSTRATES DEGENERATIVE CHANGES ONLY PATIENT WAS MADE AWARE SHE WILL NEED AN MRI AND TO SEE HER DOCTOR AT [facility] ON SATURDAY. SHE WILL BE PRESCRIBED IBUPROFEN FLEXERIL AND MEDROL DOSEPAK DX & DISP Disposition: Discharge Departure Impression: Primary Impression: Back pain of lumbosacral region with sciatica Additional Impression: Obesity Condition: Stable Scripts Cyclobenzaprine HCl (Cyclobenzaprine HCl) 10 Mg Tablet 1 TAB PO TID for muscle spasms for 10 Days, #30 TAB 0 Refills Prov: FIDENCIO GIBSON [employer] SALES ASSOCIATE 08/28/25 Ibuprofen (Ibuprofen 800 mg Tab) 800 Mg Tab 800 MG PO Q8H PRN for fever or pain, #30 TAB 0 Refills Prov: FIDENCIO GIBSON [employer] SALES ASSOCIATE 08/28/25 Methylprednisolone (Medrol) 4 Mg Tab.ds.pk 1 TAB PO AD for 6 Days, #21 TAB 0 Refills 6 on day 1 then reduce by one tablet daily until gone Prov: FIDENCIO GIBSON [employer] SALES ASSOCIATE 08/28/25 Additional Instructions: FOLLOW-UP WITH PRIMARY CARE PROVIDER IN 1 TO 2 DAYS. TAKE MEDICATIONS DIRECTED HERE IN THE EMERGENCY ROOM. OKAY TO CONTINUE HOME MEDICATIONS UNLESS OTHERWISE DISCUSSED DURING YOUR VISIT IN THE EMERGENCY ROOM TODAY. RETURN TO YOUR NEAREST EMERGENCY ROOM IF SYMPTOMS WORSEN OR IF THERE IS NO IMPROVEMENT. CALL 911 IF YOU NEED IMMEDIATE ASSISTANCE. TAKE TYLENOL OR MOTRIN [id number] NEEDED AND IF NO CONTRAINDICATIONS ARE PRESENT. INCREASE ORAL HYDRATION. A WOUND CULTURE OR URINE CULTURE WAS ORDERED HERE IN THE EMERGENCY ROOM DEPARTMENT PLEASE FOLLOW-UP WITH PRIMARY CARE PROVIDER AND ADVISE THEM TO GET REPEAT PORTS FROM OUR FACILITY. IF YOU HAD ANY MARTA WRAP/SPLINTS THAT WERE APPLIED HERE, PLEASE DO NOT REMOVE THEM UNTIL YOU SEE YOUR PRIMARY CARE OR SPECIALTY. NO LIFTING ANYTHING GREATER THAN 10 LB UNTIL CLEARED BY YOUR PRIMARY CARE DOCTOR SATURDAY TAKE IBUPROFEN AND FLEXERIL EVERY8 HOURS WITH FOOD FOR THE NEXT THREE DAYS. TAKE MEDROL DOSEPAK DIRECTED UNTIL GONE. STRONGLY RECOMMEND YOU OBTAIN AN MRI TO RULE OUT HERNIATED DISC Referrals: STEFFANY DOMINGUEZ M.D. (PCP) Time of Disposition: 17:05 I have reviewed the case, and I agree with, Diagnosis and Plan FIDENCIO GIBSON Aug 28, 2025 15:48
[2025-08-28] MEDS: CYCLOBENZAPRINE HCL 10 MG TABLET PO ONE (17:03)
--- NOTE | 2025-08-28 17:16 | HMCIMG ---
EXAM: CR Lumbar Spine, 3 View. CLINICAL HISTORY: LUMBAR PAIN WITH SCIATICA DOWN THE LEFT LEG TO FOOT COMPARISON: None provided. FINDINGS: BONES: No acute fracture or aggressive appearing osseous lesion. ALIGNMENT: Alignment is within normal limits. No significant scoliosis. DISCS / DEGENERATIVE CHANGES: Mild degenerative changes in the lower lumbar spine with facet hypertrophy and disc space narrowing. SOFT TISSUES: The soft tissues are unremarkable. There are atherosclerotic calcifications in the aorta. IMPRESSION: No acute lumbar spine abnormality evident. Mild degenerative changes in the lower lumbar spine. Atherosclerosis. /[place]
[2025-08-28 17:30] VITALS: BP 160/65; PULSE 91; RESP 18; TEMP 98.8; O2SAT 98
== END 2025-08-28 18:05 | disposition home or self-care (01) ==
LOC: EDH 15:39
DX: M54.40 Lumbago with sciatica, unspecified side (principal); E11.9 Type 2 diabetes mellitus without complications; E78.00 Pure hypercholesterolemia, unspecified; I10 Essential (primary) hypertension; E66.9 Obesity, unspecified; Z68.38 Body mass index [BMI] 38.0-38.9, adult; Z79.899 Other long term (current) drug therapy
CPT/HCPCS: 99284; 72100; 96372 ×2; J1100; J1885